=== PATIENT | male | born 1975 | race Caucasian/White ===

== ENCOUNTER 2023-08-22 18:11 | Outpatient (REF) | payer MEDICAID, SELFPAY | END 2023-08-22 18:12 | disposition home or self-care (01) | LOC: HO.HHCLNP 18:11 | PROVIDERS: Visit Provider Nurse Practitioner Family | DX: R30.9 Painful micturition, unspecified (principal) | CPT/HCPCS: 87086 ==

== ENCOUNTER 2023-10-23 10:56 | Outpatient (REF) | payer MEDICAID, SELFPAY | END 2023-10-23 10:57 | disposition home or self-care (01) | LOC: HO.HHCL 10:56 | PROVIDERS: Visit Provider Nurse Practitioner Family | DX: E11.00 Type 2 diabetes mellitus with hyperosmolarity without nonketotic hyperglycemic-hyperosmolar coma (NKHHC) (principal); I10 Essential (primary) hypertension | CPT/HCPCS: 36415; 80053; 80061; 83036 ==

== ENCOUNTER 2023-11-27 15:44 | Outpatient (REF) | payer MEDICAID, SELFPAY ==
--- NOTE | ~2023-11-27 | XR_ITS ---
EXAMINATION: XR SHOULDER, LEFT CLINICAL INFORMATION: The shoulder pain since May 2023, fell, loss of consciousness COMPARISON: None available. TECHNIQUE: AP external rotation, Grashey, scapular Y, and axillary views of the left shoulder. FINDINGS: The bones are intact. No fracture. Glenohumeral and acromioclavicular alignment is anatomic. There is moderate degenerative change of the acromioclavicular joint. There is mild narrowing of the glenohumeral joint. Subchondral cystic spaces are seen within the glenoid. No abnormal soft tissue calcifications. XR/XR shoulder LT min 2V IMPRESSION: 1. No acute bony abnormality. 2. Degenerative changes.
== END 2023-11-27 15:45 | disposition home or self-care (01) ==
LOC: HO.HHCX 15:44
PROVIDERS: Visit Provider Nurse Practitioner Family
DX: M25.512 Pain in left shoulder (principal)
CPT/HCPCS: 73030

== ENCOUNTER 2023-12-21 12:32 | Outpatient (AMB) | payer MEDICAID, SELFPAY ==
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
[2023-12-21 13:14] VITALS: BMI 43.0
== END 2023-12-21 13:45 | disposition home or self-care (01) ==
PROVIDERS: PCP Nurse Practitioner Family; Visit Provider Orthopaedic Surgery
DX: M24.812 Other specific joint derangements of left shoulder, not elsewhere classified (principal)
CPT/HCPCS: 99203

== ENCOUNTER → 2023-12-21 12:32 | Outpatient (BNVA) | payer MEDICAID, SELFPAY | PROVIDERS: Visit Provider Orthopaedic Surgery | DX: M24.812 Other specific joint derangements of left shoulder, not elsewhere classified (principal) | CPT/HCPCS: 99202 ==

== ENCOUNTER 2024-01-11 11:00 | Outpatient (RCR) | payer MEDICAID, SELFPAY ==
--- NOTE | 2023-12-26 15:28 | MHC.PT.EP ---
[facility] [place] Office [place] Office [place] Office [address] Adebayo Hackett [address] [phone] F: [phone] F: [phone] F: [phone] F: [phone] Physical Therapy Plan of Care Date of Evaluation: 12/26/23 Date of Surgery: Diagnosis: internal derangement of LEFT shoulder (MD Dx) LEFT shoulder RTC tear, adhesive capsulitis (PT Dx) (RS) Assessment: Patient is a pleasant 48 y.o. male who is referred to PT by Dr. Homer Torres MD, with Dx of internal derangement of LEFT shoulder.. PT diagnosis is LEFT shoulder RTC tear, adhesive capsulitis. Patient impairments include pain, poor posture, limited ROM, tight capsule, significant weakness. Patient current functional limitations are lift overhead, reaching, washing hair, dressing, carry groceries. Patient will benefit from skilled PT to address aforementioned impairments and functional limitations to meet established goals. Patient is a good candidate for MRI due to presentation. Frequency and Duration: The patient will be seen 2x/week for 4 weeks Short Term Goals: 2 weeks Patient demonstrates consistency and independence with HEP to self manage symptoms. Supervisor Joiners Goals: 4 weeks Patient presents with increased LEFT shoulder flexion AROM 90 degrees to be able to wash hair. Patient presents with increased LEFT shoulder flexion PROM to 130 degrees to improve mobility in capsule to better tolerate ortho visits should surgery be indicated. Treatment Plan: Modalities to reduce pain, spasms and effusion. Manual therapy to restore motion and function. Therapeutic exercise to improve strength and flexibility. Neuromuscular re-education for posture and balance. Therapeutic activities to return to functional activities of daily living. Electronically signed by: David Pickens, PT, DPT Please sign and return to therapist. Thank you for your referral.
== END 2024-03-07 10:46 | disposition home or self-care (01) ==
LOC: HO.PT 11:00
PROVIDERS: PCP Nurse Practitioner Family; Visit Provider Orthopaedic Surgery
DX: M24.812 Other specific joint derangements of left shoulder, not elsewhere classified (principal)
CPT/HCPCS: 97110; 97162

== ENCOUNTER 2024-01-19 10:14 | Outpatient (AMB) | payer MEDICAID, SELFPAY ==
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
[2024-01-19 10:21] VITALS: BMI 43.0
== END 2024-01-19 11:05 | disposition home or self-care (01) ==
PROVIDERS: PCP Nurse Practitioner Family; Visit Provider Orthopaedic Surgery
DX: M75.102 Unspecified rotator cuff tear or rupture of left shoulder, not specified as traumatic (principal)
CPT/HCPCS: 99214

== ENCOUNTER → 2024-01-19 10:14 | Outpatient (BNVA) | payer MEDICAID, SELFPAY | PROVIDERS: PCP Nurse Practitioner Family; Visit Provider Orthopaedic Surgery | DX: M75.102 Unspecified rotator cuff tear or rupture of left shoulder, not specified as traumatic (principal) | CPT/HCPCS: 99212 ==

== ENCOUNTER 2024-02-29 10:11 | Outpatient (AMB) | payer MEDICAID, SELFPAY ==
--- NOTE | 2024-02-29 10:12 | MHC.OFFVIS ---
Vital Signs 02/29/24 10:13 Height 5 ft 10 in Weight 300 lb BMI 43.0 Intake Visit Reasons: Preop LT RTC repair/SCR 03/06/24 NE Intake Note: Tani is a 49 year old male who presents today for a pre operative appointment, he is booked for Left RTC reoair 03/06/[address] Torres. He is asking if the bicep is also being repaired in this surgery. Allergies No Known Allergies [No Known Allergies*] Allergy (Unverified 02/29/24 10:13) Medication List - Last Reconciled 02/29/24 by Alexandru Mckoy PA-C amlodipine 10 mg PO QAM dulaglutide (Trulicity) mg subcut QWEEK losartan-hydrochlorothiazide 100-25 mg 1 tab PO QAM metformin 500 mg PO QAM metoprolol tartrate 25 mg PO BID naloxone 4 mg/actuation intranasal oxycodone-acetaminophen 10-325 mg 1 tab PO Q6H PRN sertraline 50 mg PO QAM HPI Comments Details: Mr Cordero presents to the office today for preop visit. He is scheduled for Left shoulder rotator cuff repair with possible superior capsular repair with Dr. Torres. He continues to have ongoing pain and difficulty with daily activities in the left shoulder, which is affecting his quality of life; therefore, he has elected to move forward with surgery. 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 Review of Systems Const All systems reviewed & are unremarkable except as noted in HPI and below Physical Exam Vital Signs: BMI result Body Mass Index 43.0 Const General: cooperative and no acute distress Orientation/consciousness: patient oriented x3 HEENT Head: Yes normal to inspection, Yes normocephalic and Yes atraumatic Eyes General: appearance normal, both eyes and all related structures Neck Neck: Yes normal visual inspection and Yes no lymphadenopathy Resp Effort & Inspection: normal respiratory effort and able to speak in complete sentences Cardio Rate: regular rate Peripheral pulses: Peripheral pulses 2+ throughout GI Inspection: Yes normal to inspection Palpation (GI): Soft to palpation Skin General skin exam: no rashes or lesions noted Neuro General: patient oriented x3 Extrem Other: Left shoulder skin intact, no open wounds or abraisons. + Drop arm and Hormblower's and lag Psych Appearance: grossly normal Mental Status: mental status grossly normal Results Reviewed Results Reviewed: Assessment & Plan Assessment & Plan (1) Rotator cuff tear, left: Code(s): M75.102 - Unspecified rotator cuff tear or rupture of left shoulder, not specified as traumatic Category: Medical Plan I explained the procedure in detail along with the length of recovery and rehab course. I explained the risk, benefits and alternatives. Risk including, but not limited to infection, blood clots, bleeding, ongoing pain and stiffness. I explained the use of the sling post op ie: 6 weeks. Discussed the importance of PT post op and performing pendulum exercises immediately after surgery. I answered all their questions and with their understanding they have consented to move forward with Left shoulder rotator cuff repair with possible superior capsular reconstruction with Dr Torres. He was fit for a sling in the office today for post op use and his medications were sent to the pharmacy. I did explain to him these are to be used post op only. Patient Instructions: Scribed for Alexandru Mckoy PA-C, by Randy Snyder nuclear medicine medical director, on 02/29/2024 at 10:30 AM EST.? I, Alexandru Mckoy PA-C, have personally reviewed and agree with the information entered by the scribe. Coding Level of Care Code Est Pt Level 3 (40788) Diagnoses Rotator cuff tear, left M75.102
[2024-02-29 10:13] VITALS: BMI 43.0
== END 2024-02-29 11:03 | disposition home or self-care (01) ==
PROVIDERS: PCP Nurse Practitioner Family; Visit Provider Physician Assistant
DX: M75.102 Unspecified rotator cuff tear or rupture of left shoulder, not specified as traumatic (principal)
CPT/HCPCS: 99024

== ENCOUNTER → 2024-02-29 10:11 | Outpatient (BNVA) | payer MEDICAID, SELFPAY | PROVIDERS: PCP Nurse Practitioner Family; Visit Provider Orthopaedic Surgery | DX: M75.102 Unspecified rotator cuff tear or rupture of left shoulder, not specified as traumatic (principal) | CPT/HCPCS: 99212 ==

== ENCOUNTER 2024-03-06 06:41 | Day surgery (SDC) | payer MEDICAID, SELFPAY ==
[2024-03-04 08:03] VITALS: BMI 43.0
--- NOTE | 2024-03-04 15:38 | HO.ANESPROP2 ---
Documented by User: Susan Patel NP 03/04/24 15:39 HPI - Anesthesia Eval Consult details Narrative: 49yo M for Left Arthroscopic Rotator Cuff Repair, possible SCR No PAT booked. 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 Allergies Allergy/AdvReac Type Severity Reaction Status Date / Time No Known Allergies Allergy Unverified 02/29/24 10:13 [No Known Allergies*] Home Medications ?Medication ?Instructions ?Recorded ?Confirmed ?Last Taken ?Type amlodipine 10 mg tablet 10 mg PO QAM 01/19/24 02/29/24 Unknown History dulaglutide 1.5 mg/0.5 mL mg subcut QWEEK 01/19/24 02/29/24 Unknown History subcutaneous pen injector (Trulicity) losartan 100 1 tab PO QAM 01/19/24 02/29/24 Unknown History mg-hydrochlorothiazide 25 mg tablet metformin 500 mg tablet 500 mg PO QAM 01/19/24 02/29/24 Unknown History metoprolol tartrate 25 mg tablet 25 mg PO BID 01/19/24 02/29/24 Unknown History naloxone 4 mg/actuation nasal spray intranasal 01/19/24 02/29/24 Unknown History oxycodone-acetaminophen 10 mg-325 1 tab PO Q6H PRN severe pain 01/19/24 02/29/24 Unknown History mg tablet sertraline 50 mg tablet 50 mg PO QAM 01/19/24 02/29/24 Unknown History Exam Height,Weight and Vital Signs: Height 5 ft 10 in Weight 136.078 kg Assessment and Plan Assessment Anesthesia Assessment: Chart Reviewed Documented by User: Wen Pugh MD 03/06/24 07:32 [facility] Past Medical History Medical History Hypertension Diabetes Family History Family history of problems with anesthesia: No Surgical History Surgical History Hx of appendectomy History of Problems with Anesthesia: No Social History Social History Advance Directives: No Advance Directives Information Provided: Yes Current occupational status: employed 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 Allergies Allergy/AdvReac Type Severity Reaction Status Date / Time No Known Allergies Allergy Unverified 02/29/24 10:13 [No Known Allergies*] Home Medications ?Medication ?Instructions ?Recorded ?Confirmed ?Last Taken ?Type amlodipine 10 mg tablet 10 mg PO QAM 01/19/24 02/29/24 Unknown History dulaglutide 1.5 mg/0.5 mL mg subcut QWEEK 01/19/24 02/29/24 Unknown History subcutaneous pen injector (Trulicity) losartan 100 1 tab PO QAM 01/19/24 02/29/24 Unknown History mg-hydrochlorothiazide 25 mg tablet metformin 500 mg tablet 500 mg PO QAM 01/19/24 02/29/24 Unknown History metoprolol tartrate 25 mg tablet 25 mg PO BID 01/19/24 02/29/24 Unknown History naloxone 4 mg/actuation nasal spray intranasal 01/19/24 02/29/24 Unknown History oxycodone-acetaminophen 10 mg-325 1 tab PO Q6H PRN severe pain 01/19/24 02/29/24 Unknown History mg tablet sertraline 50 mg tablet 50 mg PO QAM 01/19/24 02/29/24 Unknown History Exam Airway Mallampati Class: III TM Dist: <=3cm Neck ROM: Limited Heart: rrr Lungs: cta Assessment and Plan Assessment Anesthesia Assessment: Anesthesia Plan Discussed Final Anesthetic Review Family History of Problems with Anesthesia: No History of Problems with Anesthesia: No NPO: Yes ASA Class: III Final Preanesthetic Review: No Changes in Pt Med Stat, Meds/Allgs Chart Reviewed, Consent Obtained/Reviewed and Anes Risks/Benef Reviewed Patient Risk: Intermediate Procedure Risk: Intermediate Anesthetic Plan Anesthetic Plan: GA and Regional Block Disposition: Standard PACU
[2024-03-06] VITALS (8 sets, daily range): BP systolic 116–151; BP diastolic 68–87; PULSE 62–75; RESP 16–22; TEMP 36.1–36.8; O2SAT 92–97
--- NOTE | 2024-03-06 07:15 | MHC.SHP ---
Pre-Procedural Eval Section A - 24 Hr Update-Section A only Date of Service: 03/06/24 The patient is an INPATIENT: No Changes since office visit: No Cold of Flu in the past 2 weeks, No New Medical Problems, No Changes in Medication and No Patient answered all questions The patient has been examined within 24 hours of the surgical procedure. The History & Physical has been completed within 30 days and I have reviewed it.: Yes Section B - Complete if H&P > 30 days Chief Complaint: Strain of muscle(s) and tendon(s) of the rotator c Allergies: Allergies Allergy/AdvReac Type Severity Reaction Status Date / Time No Known Allergies Allergy Unverified 02/29/24 10:13 [No Known Allergies*] Plan I have reviewed the history and physical and performed a pertinent physical examination on my patient. No changes have occurred unless specified. Time Spent With Patient Time: Total time managing care of this patient today ____ minutes.
--- NOTE | 2024-03-06 07:26 | ECG_ITS ---
Test Reason : pre op Blood Pressure : / mmHG Vent. Rate : 063 BPM Atrial Rate : 063 BPM P-R Int : 124 ms QRS Dur : 086 ms QT Int : 430 ms P-R-T Axes : 040 040 020 degrees QTc Int : 440 ms Sinus rhythm with occasional Premature ventricular complexes Otherwise normal ECG When compared with ECG of 31-MAR-2014 17:00, Premature ventricular complexes are now Present Referred By: Susan Patel Electronically Signed By:ANGELLA JOHNSON MD
[2024-03-06 07:59] LABS: Hematocrit 41.2 % (42.0-52.0); Hemoglobin 13.7 g/dl (14.0-18.0); Mean Corpuscular HGB Conc 33.3 g/dl (31.0-36.0); Mean Corpuscular Hemoglobin 28.3 pg (27.0-33.0); Mean Corpuscular Volume 85.1 fL (80.0-98.0); Mean Platelet Volume 9.9 fL (9.4-12.4); Platelet Count 198 X10*3/uL (160-400); Red Blood Count 4.84 X10*6/uL (4.60-5.80); Red Cell Distribution Width 13.9 % (11.0-16.0); White Blood Count 6.3 X10*3/uL (4.8-10.8)
[2024-03-06] MEDS: Lactated Ringers 1,000 ML 100 ML IVCONT (08:09)
[2024-03-06 08:15] LABS: Glucose, Whole Blood 125 mg/dL (60-115)
[2024-03-06 08:20] LABS: Anion Gap 14 (12-20); Blood Urea Nitrogen 12 mg/dL (9-16); Calcium 9.4 mg/dL (8.4-10.2); Carbon Dioxide 29 mmol/L (22-29); Chloride 104 mmol/L (96-108); Creatinine Clr Calc Pharmacy 185.3; Estimated Glomerular Filt Rate > 60; Glucose Fasting 132 mg/dL (60-99); Potassium 3.7 mmol/L (3.3-5.1); Sodium 143 mmol/L (135-145)
--- NOTE | 2024-03-06 10:16 | PM.OP ---
Brief Operative Note Date of Service: 03/06/24 Pre-op diagnosis: left rotator cuff tear Post-op diagnosis: same Procedure: left rotator cuff repair Implants: Billings and Nephew double loaded Helacoil x 2, Knotless 5.5 x 2, knotless 5.0 x 1, larger Regeneten collagen allograft Surgeon: Homer Torres MD Anesthesia: GETA and regional Was an Assisted Living Housekeeper used for this Procedure?: Yes Assisted Living Housekeeper: Madisyn Finney Estimated blood loss (mL): 20 IV fluids (mL): 1,000 Pathology: none sent Condition: stable Disposition: PACU
--- NOTE | 2024-03-06 10:26 | P.OP_ITS ---
Operative Note Operative Note Date of Service: 03/06/24 Narrative: Date of Service: 03/06/24 Pre-op diagnosis: left rotator cuff tear Post-op diagnosis: same Procedure: left rotator cuff repair Implants: Billings and Nephew double loaded Helacoil x 2, Knotless 5.5 x 2, knotless 5.0 x 1, large Regeneten collagen allograft Surgeon: Homer Torres MD Anesthesia: GETA and regional Was an Tower Erector used for this Procedure?: Yes Tower Erector: Madisyn Finney Estimated blood loss (mL): 20 IV fluids (mL): 1,000 Pathology: none sent Condition: stable Disposition: PACU Procedure in detail: Patient was brought to the operating room and placed the the beach chair position. All bony prominences were well padded and the limb was prepped and draped in standard sterile fashion. A time out was called to identify proper site, proper procedure and proper surgeon. IV antibiotics per weight were administered. I began by making a posterolateral stab incision with a 15 blade. A blunt trochar was placed into the glenohumeral joint and I insufflated the joint with saline and a 30 degree arthroscope was placed. I established an outside- in anterior portal just distal to the biceps tendon. I then began my inspection of the glenohumeral joint. There was a large degenerative SLAP tear at the biceps anchor with the biceps displaced superiorly and 90 % torn. There were moderate cartilage changes of the glenoid witho minimal humeral head changes. There was a full thickness undersurface RTC tear with retraction. The subscapularis was intact. I completed the biceps tenotomy and circumeferentially debrided the labrum and loose glenoid articular cartilage. I then removed the trochar and entered the subacromial space. A direct lateral portal was then established and I performed a bursectomy. The cuff was then examined. There was a full thickness tear of the supra and infraspinatus with re traction. The most anterior suprapinatus insertion was intact and so the tear was more mobile than I would have expected. I esptablished two lateral portals and placed two medial row anchors into the area just adjacent to the articualr cartialge of the humeral head. I then brought the suture limbs ( 8) through the medial cuff using a suture passer. I then debrided the bare area down to bleeding bone and, using a cross bridge configuration, brought 4 limbs to each of two lateral 5.5 anchors. This required a release posteriorly and I addedx two additional posterior looped suture to \the most posterior fibers of the infraspinatus. These were brought anteriorly to a third knotless anchor. This re-approximated the cuff anatomy better than expected. This wass a large chronic tear and. while there was minimal tension on the repair, I felt that augmentation with a graft was indicated. A large Regeenten graft was placed through the alteral portal over the repair site This was adhered to the cuff with PEEK trinity and PEEK bone anchors (x 2) laterally. I then performed a 5mm subacromial decompression anteriorly. I was satisfied with the repair and the final images were captured and I removed all instrumentation. Portals were closed with nylon. Patient was placed in an abduction sling, extubated and brought to the recovery room in stable condition. There were no known complications. LARGE REPAIR PROTOCOL
== END 2024-03-06 12:37 | disposition home or self-care (01) ==
LOC: HO.SSS 06:41
PROVIDERS: Nurse Practitioner; PCP Nurse Practitioner Family; Visit Provider Orthopaedic Surgery
PROC: (CPT 29827; principal; 2024-03-06 08:30)
DX: M75.102 Unspecified rotator cuff tear or rupture of left shoulder, not specified as traumatic (principal); M24.812 Other specific joint derangements of left shoulder, not elsewhere classified; E11.9 Type 2 diabetes mellitus without complications; I10 Essential (primary) hypertension; Z79.84 Long term (current) use of oral hypoglycemic drugs; Z79.899 Other long term (current) drug therapy; Z79.85 Long-term (current) use of injectable non-insulin antidiabetic drugs
CPT/HCPCS: 29827; 29828; 36415; 80048; 82947; 85027; 93005; C1713; C1763; J0131; J0171; J0665; J0690; J1100; J1920; J2250; J2405; J2704; J3010

== ENCOUNTER → 2024-03-06 06:41 | Outpatient (BNV) | payer MEDICAID, SELFPAY | PROVIDERS: PCP Nurse Practitioner Family; Visit Provider Orthopaedic Surgery | DX: S43.432A Superior glenoid labrum lesion of left shoulder, initial encounter (principal) | CPT/HCPCS: 29827 ==

== ENCOUNTER → 2024-03-06 07:26 | Outpatient (BNV) | payer MEDICAID, SELFPAY | PROVIDERS: PCP Nurse Practitioner Family; Visit Provider Internal Medicine Cardiovascular Disease | DX: I49.3 Ventricular premature depolarization (principal) | CPT/HCPCS: 93010 ==

== ENCOUNTER 2024-03-13 09:31 | Outpatient (AMB) | payer MEDICAID, SELFPAY ==
--- NOTE | 2024-03-13 10:11 | MHC.OFFVIS ---
Intake Visit Reasons: PO LT RTC repair/SCR 03/06/24 NE Intake Note: Tani is a 49 year old male who presents today for a post operative left RTC repair, DOS 03/06/24 NE. Patient reports that he is doing well, states his pain becomes worse at night making it difficult to sleep. Allergies No Known Allergies [No Known Allergies*] Allergy (Unverified 03/13/24 11:58) Medication List - Last Reconciled 03/18/24 by Alexandru Mckoy PA-C acetaminophen 650 mg (2 x 325 mg) PO Q4-6H PRN 30 days amlodipine 10 mg PO QAM dulaglutide (Trulicity) mg subcut QWEEK ibuprofen 800 mg PO Q8H PRN 30 days losartan-hydrochlorothiazide 100-25 mg 1 tab PO QAM metformin 500 mg PO QAM metoprolol tartrate 25 mg PO BID naloxone 4 mg/actuation intranasal oxycodone-acetaminophen 10-325 mg 1 tab PO Q6H PRN sertraline 50 mg PO QAM tramadol 50 mg PO BEDTIME 7 days HPI HPI PO LT RTC repair/SCR 03/06/24 NE: Details: 49-year-old male who returns to the office today for post-op left RTC repair, 03/06/[address] Torres. He continues to have pain in his shoulder that aggravated at night makes him unable to sleep. He finds no relief with the pain medication prescribed to him. He has no other concerns. 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 No erythema or drainage. NVI. Assessment & Plan Assessment & Plan (1) Rotator cuff tear, left: Code(s): M75.102 - Unspecified rotator cuff tear or rupture of left shoulder, not specified as traumatic Category: Medical Plan Stitches were removed today, steri strips applied. He will begin a course of physical therapy to work on ROM and periscapular stabilization, no RTC strengthening at this time. He will continue wearing his sling at all times except working on therapy exercises and hygiene. He was also given a 1-time prescription of tramadol to take at night. I would like to see him back in [address] Torres, sooner if needed. Orders: Orders PT Evaluation and Treatment 03/12/24 M75.102 - Unspecified rotator cuff tear or rupture of left shoulder, not specified as traumatic Medications: New tramadol 50 mg PO BEDTIME 7 tabs 0RF 7 days Discontinued oxycodone-acetaminophen 5-325 mg (Percocet) Partial Fill upon patient request. Discontinued Reason: Doctor's Order 1 tab PO Q4-6H PRN 42 tabs 0RF pain (scale score 4-6) 7 days Patient Instructions: Scribed for Alexandru Mckoy PA-C, by Randy Snyder medical resident, on 03/13/2024 at 9:45 AM EST.? I, Alexandru Mckoy PA-C, have personally reviewed and agree with the information entered by the scribe. Coding Level of Care Code Global (79504) Diagnoses Rotator cuff tear, left M75.102
== END 2024-03-13 10:49 | disposition home or self-care (01) ==
PROVIDERS: PCP Nurse Practitioner Family; Visit Provider Physician Assistant
DX: M75.102 Unspecified rotator cuff tear or rupture of left shoulder, not specified as traumatic (principal)
CPT/HCPCS: 99024

== ENCOUNTER → 2024-03-13 09:31 | Outpatient (BNVA) | payer MEDICAID, SELFPAY | PROVIDERS: PCP Nurse Practitioner Family; Visit Provider Physician Assistant | DX: Z47.89 Encounter for other orthopedic aftercare (principal) | CPT/HCPCS: 99212 ==

== ENCOUNTER 2024-04-11 10:36 | Outpatient (AMB) | payer MEDICAID, SELFPAY ==
--- NOTE | 2024-04-11 10:39 | A.OFFVIS_ITS ---
Vital Signs 04/11/24 10:40 Height 5 ft 10 in Weight 300 lb BMI 43.0 Handedness Right Intake Visit Reasons: Post Op - Lt RTC repair 03/06/24 Intake Note: Tani is a 49 year old right hand dominant male who presents today for a post operative follow up of his Left Shoulder 5 weeks s/p Left RTC Repair 03/06/24. Patient reports he is feeling better. He is going to PT which is going well. He has been getting tightening sensation in his bicep since his surgery and would like to know if this is normal. Allergies No Known Allergies [No Known Allergies*] Allergy (Verified 04/11/24 10:40) HPI HPI Post Op - Lt RTC repair 03/06/24: Details: Tani is a 49 year old right hand dominant male who presents today for a post operative follow up of his Left Shoulder 5 weeks s/p Left RTC Repair 03/06/24. Patient reports he is feeling better. He is going to PT which is going well. He has been getting tightening sensation in his bicep since his surgery and would like to know if this is normal. 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
[2024-04-11 10:40] VITALS: BMI 43.0
== END 2024-04-11 10:53 | disposition home or self-care (01) ==
LOC: HO.HOS 10:36
PROVIDERS: PCP Nurse Practitioner Family; Visit Provider Orthopaedic Surgery
DX: M75.102 Unspecified rotator cuff tear or rupture of left shoulder, not specified as traumatic (principal)
CPT/HCPCS: 99024

== ENCOUNTER → 2024-04-11 10:36 | Outpatient (BNVA) | payer MEDICAID, SELFPAY | PROVIDERS: PCP Nurse Practitioner Family; Visit Provider Orthopaedic Surgery | DX: Z47.89 Encounter for other orthopedic aftercare (principal); Z98.890 Other specified postprocedural states | CPT/HCPCS: 99212 ==

== ENCOUNTER 2024-04-19 11:00 | Outpatient (RCR) | payer MEDICAID, SELFPAY ==
--- NOTE | 2024-04-05 13:57 | MHC.PT.EP ---
[facility] [place] Office [place] Office [place] Office [address] Adebayo Hackett [address] [phone] F: [phone] F: [phone] F: [phone] F: [phone] Physical Therapy Plan of Care Date of Evaluation: 04/05/24 Date of Surgery: 03/06/24 Diagnosis: Per script: left shoulder rotator cuff repair with possible superior capsular reconstruction 03/06/24 L supra and infraspinatus retracted repair w/ Regenten patch, biceps tenotomy, SAD on 03/06/24 Assessment: pt is a 49 y/o male presenting to physical therapy w/ referring diagnosis of left shoulder rotator cuff repair with possible superior capsular reconstruction 03/06/24. He underwent L supra and infraspinatus retracted repair w/ Regenten patch, biceps tenotomy, SAD on 03/06/24. He arrived today w/o his sling and stated he does not wear it to bed. pt edu on importance of sling for 2 more weeks until he hits 6 wk gwendolyn. pt verbalized understanding but stated he will not wear it to bed. Impairments include pain, decreased range of motion, decreased strength, impaired functional mobility, impaired postural awareness, and altered ambulation mechanics. pt is a good candidate for skilled PT due to age, potential remediation of impairments, typical disease/condition progression and prognosis, comorbidities, and motivation. pt would benefit from skilled PT intervention to provide a tailored strengthening and stretching exercise program, functional training, gait training, postural re-training, neuromuscular re-education, modalities as needed for pain, equipment safety demonstration. Frequency and Duration: The patient will be seen 2x/wk for 8 wks Short Term Goals: pt will be I w/ HEP to promote self-management of condition. pt will improve L shoulder AAROM to at least 90* to progress per protocol. pt will be compliant w/ sling for 2 more week to promote optimal post-op healing. [facility] Goals: pt will report a statistically significant improvement in self-reported outcome measure, SPADI, to promote return to PLOF. pt will improve L shoulder strength to at least 4+/5 in all planes to promote return to monotype setter. pt will improve L shoulder functional ER to at least subocciput to promote ease in upper body ADLs. Treatment Plan: Modalities to reduce pain, spasms and effusion. Manual therapy to restore motion and function. Therapeutic exercise to improve strength and flexibility. Neuromuscular re-education for posture and balance. Therapeutic activities to return to functional activities of daily living. Electronically signed by: Ginny Santo PT, DPT Please sign and return to therapist. Thank you for your referral.
--- NOTE | 2024-05-03 15:29 | MHC.PT.DC ---
[facility] [place] Office [place] Office [place] Office [address] Adebayo Hackett [address] [phone] F: [phone] F: [phone] F: [phone] F: [phone] Physical Therapy Discharge Report Diagnosis: Per script: left shoulder rotator cuff repair with possible superior capsular reconstruction 03/06/24 L supra and infraspinatus retracted repair w/ Regenten patch, biceps tenotomy, SAD on 03/06/24 Date of Surgery: 03/06/24 Date of Evaluation: 04/05/24 Date of Discharge: 05/03/24 Treatments to Date: 3 Cancellations to Date: 1 No Shows to Date: 5 Discharge Status: Recommend MD Follow-up Visit Non-compliance Discharge Summary: The patient overall has had poor compliance with management of this post-operative status. He self-discharged his sling at approximately 4 weeks. He was not wearing it at night due to having nightmares about being tied up which caused him to fall out of bed multiple times. I strongly encouraged him to comply with sling precautions. He only attended three total visits. At his last appointment he appeared visibly ill. He was progressed to the level he was expected to be per the protocol; however, his current status is unknown. He has now no showed 5 visits and is being discharged for non-compliance. Electronically signed by: Ginny Santo PT, DPT Please sign and return to therapist. Thank you for your referral.
== END 2024-05-03 15:31 | disposition home or self-care (01) ==
LOC: HO.PT 11:00
PROVIDERS: PCP Nurse Practitioner Family; Visit Provider Physician Assistant
DX: M75.102 Unspecified rotator cuff tear or rupture of left shoulder, not specified as traumatic (principal)
CPT/HCPCS: 97110; 97140; 97162

== ENCOUNTER 2024-09-02 10:17 | Outpatient (REF) | payer MEDICAID, SELFPAY ==
[2024-09-02 11:42] LABS: MANUAL DIFF FLAG NO
[2024-09-02 12:01] LABS: Basophils Percent Auto 0.4 % (0-2); Eosinophils Absolute Auto 0.2 X10*3/uL (0.0-0.4); Eosinophils Percent Auto 2.3 % (0-4); Hematocrit 45.3 % (42.0-52.0); Imm Gran Abs Auto 0.04 X10*3/uL (0.00-0.03); Imm Gran Pct Auto 0.5 % (0.0-0.4); Lymphocytes Absolute Auto 1.4 X10*3/uL (1.2-4.9); Lymphocytes Percent Auto 17.4 % (20-40); Mean Corpuscular HGB Conc 33.1 g/dl (31.0-36.0); Mean Corpuscular Hemoglobin 29.2 pg (27.0-33.0); Mean Corpuscular Volume 88.1 fL (80.0-98.0); Mean Platelet Volume 10.3 fL (9.4-12.4); Monocytes Absolute Auto 0.7 X10*3/uL (0.1-1.2); Monocytes Percent Auto 8.1 % (2-11); Neutrophils Absolute Auto 5.8 x10*3/uL (2.0-8.3); Neutrophils Percent Auto 71.3 % (45-73); Platelet Count 240 X10*3/uL (160-400); Red Blood Count 5.14 X10*6/uL (4.60-5.80); Red Cell Distribution Width 14.2 % (11.0-16.0); White Blood Count 8.1 X10*3/uL (4.8-10.8)
[2024-09-02 12:34] LABS: Alanine Aminotransferase 27 U/L (0-40); Albumin Level 4.4 g/dL (3.5-5.0); Alkaline Phosphatase 72 U/L (39-117); Anion Gap 13 (12-20); Aspartate Amino Transferase 30 U/L (5-37); Bilirubin Total 0.9 mg/dL (0.0-1.0); Blood Urea Nitrogen 8 mg/dL (9-16); C Reactive Protein 6.95 mg/dL (< or = 0.50); Calcium 9.8 mg/dL (8.4-10.2); Carbon Dioxide 30 mmol/L (22-29); Chloride 101 mmol/L (96-108); Estimated Glomerular Filt Rate > 60; Glucose Random 149 mg/dL (60-115); Potassium 3.2 mmol/L (3.3-5.1); Sodium 141 mmol/L (135-145); TSH reflex Free T4 1.05 uIU/mL (0.32-4.0); Total Protein 8.3 g/dL (6.5-8.0)
[2024-09-02 12:41] LABS: ~HepC Num1 0.53 S/CO (0.00-0.79); ~Hepatitis B Surface Antibody NONREACTIVE (Nonreactive); ~Hepatitis C Antibody Nonreactive (Nonreactive)
[2024-09-02 12:44] LABS: Erythrocyte Sedimentation Rate 20 MM/HR (0-15)
[2024-09-02 12:57] LABS: Folate 14.2 ng/mL (> or = 4.0); Vitamin B12 806 pg/mL (200-900)
[2024-09-04 02:39] LABS: RPR Rapid Plasma Reagin NON-REACTIVE (NON-REACTIVE)
[2024-09-05 11:43] LABS: HIV RNA PCR Qn Copies Not Detected Copies/mL; HIV RNA PCR Qn Log Copies Not Detected Log cps/mL
== END 2024-09-02 10:18 | disposition home or self-care (01) ==
LOC: HO.HHCL 10:17
PROVIDERS: Nurse Practitioner Family; Visit Provider Nurse Practitioner Family
DX: Z00.00 Encounter for general adult medical examination without abnormal findings (principal); R19.7 Diarrhea, unspecified; E11.9 Type 2 diabetes mellitus without complications; Z11.3 Encounter for screening for infections with a predominantly sexual mode of transmission; R41.3 Other amnesia
CPT/HCPCS: 36415; 80053; 82607; 82746; 84443; 85025; 85652; 86140; 86592; 86706; 86803; 87536; 87900

== ENCOUNTER 2025-03-20 09:38 | Outpatient (REF) | payer OTHER, SELFPAY ==
--- OUTSIDE RECORDS SUMMARY | 2025-03-20 10:45 | XMS_ITS | Encounter Summary ---
Author Organization [employer] Address [address] [place] [address] [address] [address] Care Team Providers Care Rerecording Mixer Name Role Phone Mary Reich NP Primary Care Provider [phone] Reason for Referral * Imaging (Routine) - Authorized Specialty Diagnoses / Procedures Referred By Nehal pedro Referred To Contact Cardiology Diagnoses Primary hypertension Procedures Transthoracic Echo (TTE) Complete Mary Reich NP [address] [place] [address] Phone: tel: fax: [address] Phone: tel: fax: Referral ID Status Reason Start Date Expiration Date Visits Requested Visits Authorized [id number] Authorized Perform Procedure 03/17/2025 03/17/2026 1 1 * Medications - Closed Specialty Diagnoses / Procedures Referred By Nehal t Referred To Contact Diagnoses Type 2 diabetes mellitus with other specified complication, unspecified whether middle or intermediate school principal insulin use ([facility]) Mary Reich NP [address] [place] [address] Phone: tel: fax: Referral ID Status Reason Start Date Expiration Date Visits Re quested Visits Authorized [id number] Closed 1 1 * Consultation (Routine) - Authorized Specialty Diagnoses / Procedures Referred By Nehal t Referred To Contact Behavioral Health Diagnoses Current mild episode of major depressive disorder without prior episode (CMS/HCC) Mary Reich NP [address] [place] [address] Phone: tel: fax: Referral ID Status Reason Start Date Expiration Date Visits Requested Visits Authorized [id number] Authorized Specialty Services Required 03/17/2025 03/17/2026 1 1 * Consultation (Routine) - Authorized Specialty Diagnoses / Procedures Referred By Contac t Referred To Contact Cardiology Diagnoses Primary hypertension Mary Reich NP [address] [place] [address] Phone: tel: fax: [address] Phone: tel: fax: Referral ID Status Reason Start Date Expiration Date Visits Requested Visits Authorized [id number] Authorized Specialty Services Required 03/17/2025 03/17/2026 1 1 Encounter Details Date Type Department Care Team (Late st Contact Info) Description 03/17/2025 9:30 AM EDT Office Visit [facility] [address] [place] [address] Mary Reich NP [address] [place] [address] Type 2 diabetes mellitus with other specified complication, unspecified whether jail insulin use ([facility]) (Primary Dx); Chronic pain syndrome; Primary hypertension; Dietary counseling; Exercise counseling; Long-term current use of opiate analgesic; Chronic midline low back pain with sciatica, sciatica laterality unspecified; Current mild episode of major depressive disorder without prior episode ([facility]); Morbid obesity ([facility]) Social History Tobacco Use Types Packs/Day Years Used Date Smoking Tobacco: Former Cigarettes 2 15 Passive Smoke Exposure: Past Smokeless Tobacco: Never Tobacco Cessation:Counseling Given: Not Answered Comments:Quit smoking 16 years ago Alcohol Use Standard Drinks/Week Comments Not Currently 0 (1 standard drink = 0.6 oz pur e alcohol) Depression Answer Date Recorded Patient Health Questionnaire-9 Score 15 03/17/2025 Patient Health Questionnaire-9 Score 15 03/17/2025 Last PHQ-9: Questionnaire Data Not on file 0 03/17/2025 Housing Stability Answer Date Recorded What is your housing situation today? I have lilo ponce 03/17/[address] you li ve. Do you have problems with any of the following? None of the above 03/17/2025 Food Insecurity Answer Date Recorded Within the past 12 months, y ou worried that your food would run out before you got money to buy more: Often true 03/17/2025 Within the past 12 months,th e food you bought just didn't last and you didn't have enough money to get more: Often true 11/2024 Transportation Answer Date Recorded In the past 12 months, has l ack of transportation kept you from medical appts, meetings, work or from getting things needed for daily living? No 03/17/2025 Utilities Answer Date Recorded In the past 12 months, has t he electric, gas, oil or water company threatened to shut off services in your home? No 03/17/2025 Depression Answer Date Recorded Patient Health Questionnaire-2 Score 4 03/17/2025 Internet Access Answer Date Recorded Internet Access Q1 Yes 03/17/2025 Internet Access Q2 Not on file 03/17/2025 Sex and Gender Information Value Date Recorded Sex Assigned at Male 08/22/2023 9:51 AM EST Legal Sex Male 11:23 AM EDT Gender Identity Male 08/22/2023 9:51 AM EST Sexual Orientation Straight 08/22/2023 9: 51 AM EST documented as of this encounter Last Filed Vital Signs Vital Sign Reading Time Taken Comments Blood Pressure 162/110 03/17/2025 10:20 AM EDT Pulse 72 03/17/2025 9:41 AM EDT Temperature 36.1 ??C (96.9 ??F) 03/17/2025 9:41 AM ED T Respiratory Rate 16 03/17/2025 9:41 AM EDT Oxygen Saturation - - Inhaled Oxygen Concentration - - Weight 145 kg (319 lb 2 oz) 03/17/2025 9:41 AM E DT Height 177.8 cm (5' 10 ) 03/17/2025 9:41 AM EDT Body Mass Index 45.79 03/17/2025 9:41 AM EDT documented in this encounter Functional Status * Over the past 2 weeks, how often have you been bothered by any of the following problems? Question Answer Date of Assessment Author Patient Health Questionnaire-2 Score 4 03/17/2025 10:20 AM EDT Jeaneth Bustamante MA * Little interest or pleasure in doing things Answer Date of Assessment Author More than half the days 03/17/2025 10:20 AM EDT Jeaneth Frederick MA * Feeling down, depressed, or hopeless Answer Date of Assessment Author More than half the days 03/17/2025 10:20 AM Jeaneth Brambila MA * Trouble falling or staying asleep, or sleeping too much Answer Date of Assessment Author Nearly every day 03/17/2025 10:20 AM Jeaneth Santa MA * Feeling tired or having little energy Answer Date of Assessment Author Nearly every day 03/17/2025 10:20 AM EDJeaneth Tobar MA * Poor appetite or overeating Answer Date of Assessment Author Several days 03/17/2025 10:20 AM Jeaneth Marie Ma, [place] * Feeling bad about yourself - or that you are a failure or have let yourself or your family down Answer Date of Assessment Author Nearly every day 03/17/2025 10:20 AM Jeaneth Santa MA * Trouble concentrating on things, such as reading the newspaper or watching television Answer Date of Assessment Author Several days 03/17/2025 10:20 AM Jeaneth Marie Ma, [place] * Moving or speaking so slowly that other people could have noticed? Or the opposite - being so fidgety or restless that you have been moving around a lot more than usual. Answer Date of Assessment Author Not at all 03/17/2025 10:20 AM Jeaneth Marie Ma, [place] * Thoughts that you would be better off or hurting yourself in some way Answer Date of Assessment Author Not at all 03/17/2025 10:20 AM EDT Jeaneth Chapman Ma, [place] * Patient Health Questionnaire-9 Score Answer Date of Assessment Author 15 03/17/2025 10:20 AM EDT Jeaneth Chapman Ma, [place] * How difficult have these problems made it for you to do your work, take care of things at home, or get along with other people? Answer Date of Assessment Author Somewhat difficult 03/17/2025 10:20 AM EDT Jeaneth Frederick MA * Over the last 2 weeks, how often have you been bothered by any of the following problems? Question Answer Date of Assessment Author Feeling nervous, anxious, or on edge 2 03/17/2025 10:20 AM EDT Jeaneth Frederick MA Not being able to stop or control worrying 2 03/17/2025 10:20 AM EDT Jeaneth Frederick MA Worrying too much about different things 2 03/17/2025 10:20 AM EDT Jeaneth Frederick MA Trouble relaxing 3 03/17/2025 10:20 AM EDT Jeaneth Frederick MA Being so restless that it is hard to sit still 1 03/17/2025 10:20 AM TONGT Jeaneth Frederick MA Becoming easily annoyed or irritable 1 03/17/2025 10:20 AM EDT Jeaneth Frederick MA Feeling afraid as if something awful might happen 1 03/17/2025 10:20 AM EDT Jeaneth Sands MA VENESSA-7 Total Score 12 03/17/2025 10:20 AM EDT Jeaneth Frederick MA documented as of this encounter Progress Notes * Mary Reich NP - 03/17/2025 9:30 AM EDT Subjective: Tani Cordero is a 50 y.o. male with hypertension/ type II DIABETES MELLITUS and chronic pain NCNS to chronic pain group Did not take bp meds this morning Denies CP or pressure Reports at home bp can go up to 200 Pt reports pain medication, sports injury , oxycodone or percocet before it was higher dose, and with oxycontin bid, and augusto and the dr lowered it, 2010 to here, more pain in shouldersare painful, has had surgery on left arm which is worse 1 year ago surgery, Rotator cuff and bicep repair [facility] Stabbing and no strength Headaches with both gabapentin and lyrica bad headache New concerns: pt reports he called regarding pain group, [place] was [place] for . Frustrated with calling, phone have not been recorded correctly Htn- abotu the same at home but no chest pain Has not had trulicity for 3-6 motnhs Was working wt was down to 286 lbs Pt diabetic - and not controlled with metformin and with cardiovascular comorbidity Pain is not adequately controlled, shoulder pain severe Anxiety- endorses panic attacks, sertraline not helpful and pt ran out sometime ago Hypertension ROS: taking medications as instructed, no medication side effects noted, no TIA's, no chest pain on exertion, and no dyspnea on exertion. BP Readings from Last 3 Encounters: 03/17/25 (!) 162/110 09/02/24 (!) 164/110 02/09/24 (!) 157/100 No results found for: MICHAEL GARY Problem List[1] Tobacco Use History[2] Objective: BP (!) 162/110 (BP Location: Right arm, Patient Position: Sitting, BP Cuff Size: Large adult) Comment (BP Location): four arm Pulse 72 Temp 96.9 ??F (36.1 ??C) (Oral) Resp 16 Ht 5' 10 (1.778m) Wt 319 lb 2 oz (145 kg) BMI 45.79 kg/m?? Appearance alert, well appearing, and in no distress and overweight. General exam BP noted to be severely elevated today in office, S1, S2 normal, no gallop, no murmur,chest clear, no JVD, no HSM, no edema. Lab review: orders written for new lab studies as appropriate; see orders. The 10-year ASCVD risk score (Neo CHAU, et al., 2019) is: 9.6% Values used to calculate the score: Age: 50 years Sex: Male Is Non- : No Diabetic: Yes Tobacco smoker: No Systolic Blood Pressure: 162 mmHg Is BP treated: Yes HDL Cholesterol: 48 mg/dL Total Cholesterol: 170 mg/dL Current Medications[3] Problem List Items Addressed This Visit Chronic midline back pain Hypertension Current Assessment & Plan Above goal, on losartan, hydrochlorothiazide, amlodipine and betablocker Referral to cardiology EKG wnl No chest pain or pressure Echo ordered As well as trulicity for sugar management and BMI reduction Relevant Orders ECG 12 lead (Completed) Referral to Cardiology Transthoracic Echo (TTE) Complete Dietary counseling Current Assessment & Plan Dietary Recommendations: Fruits, vegetables, whole grains, protein foods, and fat-free or low-fat dairy products are healthychoices. Eat different types of protein foods in your diet. This can include seafood, lean meats, poultry, beans, peas, lentils, nuts, seeds, soy products, and eggs. Limit foods and beverages higher in added sugars, saturated fat, and sodium. Exercise Recommendations: At least 150 minutes of moderate-intensity physical activity per week, or an equivalent combinationof moderate- and vigorous-intensity activity Relevant Medications Dulaglutide (Trulicity) 0.75 MG/0.5ML solution auto-injector Exercise counseling Relevant Medications Dulaglutide (Trulicity) 0.75 MG/0.5ML solution auto-injector Long-term current use of opiate analgesic Overview Medication: Percocet 10/325mg Q6H PRN Indication: chronic midline back pain, left shoulder pain Last UI [employer]EL[employer] Agreement: 11/26/24 Current Assessment & Plan Pt reports has called and plans to estblish EMR usage for future communications related to pain group. Pain not managed , but pt does not want to increase opiate therapy Gabapentin caused headaches, add cymbalta for panic and pain Relevant Medications DULoxetine (Cymbalta) [address] capsule Type 2 diabetes mellitus with other specified complication (CMS/HCC) - Primary Relevant Medications Dulaglutide (Trulicity) 0.75 MG/0.5ML solution auto-injector Other Relevant Orders POCT Glucose (Completed) POCT HGB A1C (Completed) Lipid Panel, Standard Comprehensive Metabolic Panel Microalbumin, Random Urine w/Creatinine Hemoglobin A1c Chronic pain syndrome Relevant Medications DULoxetine (Cymbalta) [address] capsule Morbid obesity (CMS/HCC) Current Assessment & Plan Will restart trulicity Lab Results Component Value Date HGBA1C 7.6 (A) 03/17/2025 Relevant Medications Dulaglutide (Trulicity) 0.75 MG/0.5ML solution auto-injector Current mild episode of major depressive disorder without prior episode (CMS/HCC) Current Assessment & Plan Increased panic, self stopped sertraline, trial cymbalta Referral to Relevant Medications DULoxetine (Cymbalta) [address] capsule Other Relevant Orders Referral to Behavioral Health Assessment: Hypertension poorly controlled, patient poorly compliant, and needs to follow diet more regularly. Plan: Lab results and schedule of future lab studies reviewed with patient. Orders and follow up as documented in patient record. Reviewed diet, exercise and weight control. Recommended sodium restriction. Reviewed medications and side effects in detail.. [1] Patient Active Problem List Diagnosis VENESSA (generalized anxiety disorder) Chronic midline back pain Other insomnia Controlled type 2 diabetes mellitus without complication, without long-term current use of insulin (CMS/HCC) Hypertension Routine health maintenance Screening for colon cancer Dietary counseling Exercise counseling Diarrhea Snoring Memory loss Long-term current use of opiate analgesic Type 2 diabetes mellitus with other specified complication (CMS/HCC) Chronic pain syndrome Morbid obesity (CMS/HCC) Current mild episode of major depressive disorder without prior episode (CMS/HCC) [2] Social History Tobacco Use Smoking Status Former Current packs/day: 2.00 Average packs/day: 2.0 packs/day for 15.0 years (30.0 ttl pk-yrs) Types: Cigarettes Passive exposure: Past Smokeless Tobacco Never Tobacco Comments Quit smoking 16 years ago [3] Current Outpatient Medications Medication Sig Dispense Refill acetaminophen (Tylenol) 325 MG tablet TAKE 2 TABLETS BY MOUTH EVERY 4 TO 6 HOURS NEEDED FOR PAINOR FEVER amLODIPine (Norvasc) 10 MG tablet TAKE 1 TABLET BY MOUTH EVERY DAY IN THE MORNING 90 tablet 3 Blood Glucose Monitoring Suppl ([employer] [place] Lite) w/Device kit Use to test blood sugar bid dxdm 1 kit 0 Blood Pressure kit 1 kit if needed each day (high blood pressure). 1 kit 1 cyclobenzaprine (Flexeril) 10 MG tablet TAKE 1 TABLET BY MOUTH THREE TIMES DAILY FOR 10 DAYS 30 tablet 0 Dulaglutide (Trulicity) 0.75 MG/0.5ML solution auto-injector Inject 0.5 mL under the skin 1 (one) time per week for 28 days. 2 mL 0 Dulaglutide (Trulicity) 0.75 MG/0.5ML solution auto-injector Inject 0.75 mg under the skin 1 (one) time per week. 2 mL 0 DULoxetine (Cymbalta) [address] capsule Take 1 capsule (20 mg) by mouth Once per day for 5 days, THEN 1 capsule (20 mg) 2 times daily for 25 days. Do not crush or chew. 55 capsule 1 glucose blood test strip Use 3 times dialy before meals 100 each 12 ibuprofen 800 MG tablet Take 1 tablet (800 mg) by mouth every 8 (eight) hours if needed for mild pain. 90 tablet 3 losartan-hydroCHLOROthiazide (Hyzaar) 100-25 MG tablet TAKE 1 TABLET BY MOUTH EVERY DAY IN THE MORNING 90 tablet 3 metFORMIN (Glucophage) 500 MG tablet TAKE 1 TABLET BY MOUTH EVERY DAY WITH BREAKFAST 90 tablet 3 metoprolol tartrate (Lopressor) 25 MG tablet TAKE 1 TABLET BY MOUTH TWICE DAILY 180 tablet 1 Multiple Vitamin (multivitamin) tablet Take 1 tablet by mouth Once per day. Purchases OTC oxyCODONE-acetaminophen (Percocet) 10-325 MG tablet Take 1 tablet by mouth every 6 (six) hours if needed for severe pain for up to 28 days. 112 tablet 0 TRUEplus Lancets 33G misc 1 Application 3 times daily. TEST BLOOD SUGAR THREE TIMES DAILY No current facility-administered medications for this visit. documented in this encounter Miscellaneous Notes * Assessment & Plan Note - Mary Reich NP - 03/17/2025 12:48 PM EDTAssociated Problem(s): Morbid obesity (CMS/HCC) Will restart trulicity Lab Results Component Value Date HGBA1C 7.6 (A) 03/17/2025 * Assessment & Plan Note - Mary Reich NP - 03/17/2025 12:48 PM EDTAssociated Problem(s): Current mild episode of major depressive disorder without prior episode (CMS/HCC) Increased panic, self stopped sertraline, trial cymbalta Referral to * Assessment & Plan Note - Mary Reich NP - 03/17/2025 12:47 PM EDTAssociated Problem(s): Long-term current use of opiate analgesic Pt reports has called and plans to estblish EMR usage for future communications related to pain group. Pain not managed , but pt does not want to increase opiate therapy Gabapentin caused headaches, add cymbalta for panic and pain * Assessment & Plan Note - Mary Reich NP - 03/17/2025 12:45 PM EDTAssociated Problem(s): Dietary counseling Dietary Recommendations: Fruits, vegetables, whole grains, protein foods, and fat-free or low-fat dairy products are healthychoices. Eat different types of protein foods in your diet. This can include seafood, lean meats, poultry, beans, peas, lentils, nuts, seeds, soy products, and eggs. Limit foods and beverages higher in added sugars, saturated fat, and sodium. Exercise Recommendations: At least 150 minutes of moderate-intensity physical activity per week, or an equivalent combinationof moderate- and vigorous-intensity activity * Assessment & Plan Note - Mary Reich NP - 03/17/2025 12:45 PM EDTAssociated Problem(s): Hypertension Above goal, on losartan, hydrochlorothiazide, amlodipine and betablocker Referral to cardiology EKG wnl No chest pain or pressure Echo ordered As well as trulicity for sugar management and BMI reduction documented in this encounter Plan of Treatment Upcoming Encounters Date Type Department Care Team (Late st Contact Info) Description 03/24/2025 2:00 PM EDT Clinical Support [address] [address] 03/25/2025 9:45 AM EDT Office Visit [facility] [address] [place] [address] 05/12/2025 9:30 AM EDT Office Visit [facility] [address] [facility] [place] [address] Mary Reich NP [address] [place] [address] Scheduled Orders Name Type Priority Associated Diagnoses Orde r Schedule Lipid Panel, Standard Lab Routine Type 2 diabetes mellitus with other specified complication, unspecified whether middle or intermediate school principal insulin use (CMS/HCC) Expected: 03/17/2025 (Approximate), Expires: 03/17/2026 Comprehensive Metabolic Panel Lab Routine Type 2 diabetes mellitus with other specified complication, unspecified whether middle or intermediate school principal insulin use (CMS/HCC) Expected: 03/17/2025 (Approximate), Expires: 03/17/2026 Microalbumin, Random Urine w/Creatinine Lab Routine Type 2 diabetes mellitus with other specified complication, unspecified whether middle or intermediate school principal insulin use (CMS/HCC) Expected: 03/17/2025 (Approximate), Expires: 03/17/2026 Hemoglobin A1c Lab Routine Type 2 diabetes mellitus with other specified complication, unspecified whether middle or intermediate school principal insulin use (CMS/HCC) Expected: 03/17/2025 (Approximate), Expires: 03/17/2026 Transthoracic Echo (TTE) Complete Echocardiography Routine Primary hypertension Expected: 03/17/2025 (Approximate), Expires: 03/17/2027 Scheduled Referrals Name Type Priority Associated Diagnoses Orde r Schedule Referral to Cardiology Outpatient Referral Routine Primary hypertension Expected: 03/17/2025 (Approximate), Expires: 03/17/2026 Referral to Behavioral Health Outpatient Referral Routine Current mild episode of major depressive disorder without prior episode (CMS/HCC) Expected: 03/17/2025 (Approximate), Expires: 03/17/2026 documented as of this encounter Procedures Procedure Name Priority Date/Time Associated Diagnosis Comments ECG 12-LEAD Routine 03/17/2025 9:58 AM EDT Primary hypertension POCT GLYCATED HEMOGLOBIN, TOTAL Routine 03/17/2025 9:44 AM EDT Type 2 diabetes mellitus with other specified complication, unspecified whether middle or intermediate school principal insulin use (CMS/HCC) POCT GLUCOSE Routine 03/17/2025 9:44 AM EDT Type 2 diabetes mellitus with other specified complication, unspecified whether jail insulin use ([facility]) documented in this encounter Results * ECG 12 lead (03/17/2025 9:58 AM EDT) Mary Vo NP - 03/17/2025 9:59 AM EDT Sinus rhythm, normal EKG Pr 122/154 Qrs 90ms At 394/[address] elevation Mary Reich NP ECG ORDERABLES Edited Result - Final * (ABNORMAL) POCT HGB A1C (03/17/2025 9:44 AM EDT) Hemoglobin A1C 7.6(A) 4.0 - 6.0 % QC Media Lot # [id number] Lot# Expiration Date Blood 03/17/2025 9:44 AM EDT Mary Reich NP POINT OF CARE TEST ENTER/EDIT OR DERABLES Final Result * POCT Glucose (03/17/2025 9:44 AM EDT) Pathologist [facility] Glucose Blood, POC 179 60 - 200 mg/dL QC Media Lot # [id number] Lot# Expiration Date , Blood Capillary blood specimen / Unknown 03/17/2025 9:44 AM EDT Mary Reich NP POINT OF CARE TEST ENTER/EDIT OR DERABLES Final Result documented in this encounter Visit Diagnoses Diagnosis Type 2 diabetes mellitus with other specified complication, unspecified whether middle or intermediate school principal insulin use ([facility])- Primary Chronic pain syndrome Primary hypertension Unspecified essential hypertension Dietary counseling Dietary surveillance and counseling Exercise counseling Long-term current use of opiate analgesic Encounter for long-term (current) use of other medications Chronic midline low back pain with sciatica, sciatica laterality unspecified Current mild episode of major depressive disorder without prior episode ([facility]/HCC) Morbid obesity (CMS/HCC) Morbid obesity documented in this encounter Additional Health Concerns Assessment Noted Time PHQ-9 Depression Total Score: 15 03/17/ 025 10:20 AM EDT documented as of this encounter Care Teams Rerecording Mixer Relationship Specialty Start Date End Date Mary Reich NP [address] [place] [address] PCP - General Family Medicine 06/11/24 documented as of this encounter
[2025-03-20 12:06] LABS: Estimated Average Glucose 174 mg/dL; Hemoglobin A1c % 7.7 % (<6.0)
[2025-03-20 12:19] LABS: Creatinine Urine 209.77 mg/dL; Microalbum/Creatinine Ratio Ur 20.4 ug/mg cr (<30)
[2025-03-20 12:25] LABS: Alanine Aminotransferase 63 U/L (0-40); Albumin Level 4.3 g/dL (3.5-5.0); Alkaline Phosphatase 85 U/L (39-117); Anion Gap 13 (12-20); Aspartate Amino Transferase 71 U/L (5-37); Bilirubin Total 0.5 mg/dL (0.0-1.0); Blood Urea Nitrogen 13 mg/dL (9-16); Carbon Dioxide 28 mmol/L (22-29); Chloride 104 mmol/L (96-108); Cholesterol 192 mg/dL (<200); Estimated Glomerular Filt Rate > 60; Glucose Random 187 mg/dL (60-115); HDL Cholesterol 45 mg/dL (>40); LDL Cholesterol Calculated 104 mg/dL (<100); Potassium 3.7 mmol/L (3.3-5.1); Sodium 141 mmol/L (135-145); Total Protein 7.8 g/dL (6.5-8.0); Triglycerides 215 mg/dL (<150)
== END 2025-03-20 09:39 | disposition home or self-care (01) ==
LOC: HO.HHCL 09:38
PROVIDERS: Nurse Practitioner Family; Visit Provider Nurse Practitioner Family
DX: E11.00 Type 2 diabetes mellitus with hyperosmolarity without nonketotic hyperglycemic-hyperosmolar coma (NKHHC) (principal)
CPT/HCPCS: 36415; 80053; 80061; 82043; 82570; 83036

== ENCOUNTER 2025-03-25 16:12 | Outpatient (REF) | payer OTHER, SELFPAY ==
[2025-03-25 16:30] LABS: Phencyclidine Screen Urine Not Detected (Not Detect)
--- OUTSIDE RECORDS SUMMARY | 2025-03-25 18:56 | XMS_ITS | Encounter Summary ---
Author Organization [employer] Address [address] [place] [address] 7 [place] [address] Care Team Providers Care Gambling Floor Supervisor Name Role Phone aMry Reich NP Primary Care Provider [phone] Reason for Visit * Reason Onset Date Comments telephone call 03/20/2025 Encounter Details Date Type Department Care Team ([facility] st Contact Info) Description 03/20/2025 Telephone [facility] [address] [place] [address] Mary Reich NP [address] [place] [address] telephone call Social History Tobacco Use Types Packs/Day Years Used Date Smoking Tobacco: Former Cigarettes 2 15 Passive Smoke Exposure: Past Smokeless Tobacco: Never Comments:Quit smoking 16 yea rs ago Alcohol Use Standard Drinks/Week Comments Not [...] AM EST documented as of this encounter Miscellaneous Notes * Addendum Note - Herbie Stoner MD - 03/20/2025 10:09 AM EDTAddended by: HERBIE STONER on: 03/20/2025 10:09 AM Modules accepted: Orders * Addendum Note - Felicia Trevino RN - 03/20/2025 10:07 AM EDTAddended by: FELICIA TREVINO on: 03/20/2025 10:07 AM Modules accepted: Orders * Telephone Encounter - Felicia Trevino RN - 03/20/2025 10:02 AM EDT Return TC to patient, pt asking who will be able to send his refill since PCP is away. Assured pt acovering provider will handle the refill. Reminded pt of chronic pain group coming up 03/25/25. * Telephone Encounter - Gris Estes - 03/20/2025 9:30 AM EDT Pt walked in requesting a refill for Oxycodone and he is requesting if you can call him he has a quick question. documented in this encounter Plan of Treatment Upcoming Encounters Date Type Department Care Team (Late st Contact Info) Description 04/22/2025 9:45 AM EDT Office Visit [facility] [address] [place] [address] 05/12/2025 9:30 AM EDT Office Visit [address] [address] Mary Reich NP [address] [place] [address] documented as of this encounter Visit Diagnoses Diagnosis Chronic midline back pain, unspecified back location documented in this encounter Additional Health Concerns Assessment Noted Time PHQ-9 Depression Total Score: 15 025 10:20 AM EDT documented as of this encounter Care Teams Gambling Floor Supervisor Relationship Specialty Start Date End Date Mary Reich NP [address] [place] [address] PCP - General Family Medicine 06/11/24 documented as of this encounter
== END 2025-03-25 16:13 | disposition home or self-care (01) ==
LOC: HO.HHCLNP 16:12
PROVIDERS: Visit Provider Registered Nurse
DX: Z79.891 Long term (current) use of opiate analgesic (principal)
CPT/HCPCS: 80307

== ENCOUNTER 2025-04-22 12:35 | Outpatient (REF) | payer OTHER, SELFPAY ==
--- OUTSIDE RECORDS SUMMARY | 2025-04-22 13:19 | XMS_ITS | Encounter Summary ---
Author Organization [employer] Address [address] [place] [address] 7 [place] [address] Care Team Providers Care Lamp Cleaner Name Role Phone Mary Reich NP Primary Care Provider [phone] Reason for Visit * Reason Comments Med Refill Encounter Details Date Type Department Care Team ([facility] st Contact Info) Description 07/18/2024 Refill [facility] [address] [place] [address] Mary Reich NP [address] [place] [address] Chronic midline back pain, unspecified back location Social History Tobacco Use Types Packs/Day Years Used Date Smoking Tobacco: Former Cigarettes 2 15 Passive Smoke Exposure: Never Smokeless Tobacco: Never Comments:Quit smoking 16 yea rs ago Alcohol Use Standard Drinks/Week Comments Not Currently 0 (1 standard drink = 0.6 oz pur e alcohol) Depression Answer Date Recorded Patient Health Questionnaire-9 Score 14 02/09/2024 Patient Health Questionnaire-9 Score 14 02/09/2024 Last PHQ-9: Questionnaire Data Not on file 0 02/09/2024 Housing Stability Answer Date Recorded What is your housing situation today? I am not s ure 02/09/[address] you li ve. Do you have problems with any of the following? None of the above 02/09/2024 Food Insecurity Answer Date Recorded Within the past 12 months, y ou worried that your food would run out before you got money to buy more: Sometimes True 2023 Within the past 12 months,th e food you bought just didn't last and you didn't have enough money to get more: Sometimes True 02/02/2024 Transportation Answer Date Recorded In the past 12 months, has l ack of transportation kept you from medical appts, meetings, work or from getting things needed for daily living? No 10/06/2023 Utilities Answer Date Recorded In the past 12 months, has t he electric, gas, oil or water company threatened to shut off services in your home? No 10/06/2023 Depression Answer Date Recorded Patient Health Questionnaire-2 Score 4 02/09/2024 Sex and Gender Information Value Date Recorded Sex Assigned at Male 08/22/2023 9:51 AM EST Legal Sex Male 11:23 AM EDT Gender Identity Male 08/22/2023 9:51 AM EST Sexual Orientation Straight 08/22/2023 9: 51 AM EST documented as of this encounter Plan of Treatment Upcoming Encounters Date Type Department Care Team (Late st Contact Info) Description 05/12/2025 9:30 AM EDT Office Visit [facility] [address] [place] [address] Mary Reich NP [address] [place] [address] 06/24/2025 9:45 AM EDT Office Visit [address] [address] documented as of this encounter Visit Diagnoses Diagnosis Chronic midline back pain, unspecified back location documented in this encounter Additional Health Concerns Assessment Noted Time PHQ-9 Depression Total Score: 14 024 1:50 PM EDT documented as of this encounter Care Teams Lamp Cleaner Relationship Specialty Start Date End Date Mary Reich NP [address] [place] [address] PCP - General Family Medicine 06/11/24 documented as of this encounter
[2025-04-25 08:49] LABS: EDDP (Methadone Metabolite) 320 ng/mL; Methadone, Urine MS 480 ng/mL
[2025-04-25 11:18] LABS: Codeine, Ur NEGATIVE
[2025-04-25 11:19] LABS: Hydrocodone, Ur NEGATIVE
[2025-04-25 11:20] LABS: Oxycodone, Ur 1572
[2025-04-25 11:21] LABS: Hydromorphone, Ur NEGATIVE; Morphine, Ur 714
[2025-04-25 11:22] LABS: Oxymorphone, Ur 774
[2025-04-25 11:25] LABS: Norhydrocodone, Ur NEGATIVE
[2025-04-25 11:27] LABS: Noroxycodone, Ur 1964
== END 2025-04-22 12:36 | disposition home or self-care (01) ==
LOC: HO.HHCLNP 12:35
PROVIDERS: Visit Provider Registered Nurse
DX: M54.50 Low back pain, unspecified (principal); G89.29 Other chronic pain
CPT/HCPCS: 80358; 80365; G0480

== ENCOUNTER 2025-06-11 18:00 | Outpatient (REF) | payer OTHER, SELFPAY ==
--- OUTSIDE RECORDS SUMMARY | 2025-06-11 10:00 | XMS_ITS | Encounter Summary ---
Author Organization [employer] Address [address] [place] [address] 7t [place] [address] Care Team Providers Care Licensed Retail Supervisor Name Role Phone Mary Reich MAGNOLIA Primary Care Provider [phone] Reason for Visit * Reason Comments DIGITAL CAMPAIGN SPECIALIST RV Encounter Details Date Type Department Care Team (Latest Contact Info) Description 06/11/2025 10:00 AM EDT Clinical Support [facility] [address] [place] [address] Felicia Trevino RN Long-term current use of opiate analgesic (Primary Dx) Social History Tobacco Use Types Packs/Day Years [...] AM EST documented as of this encounter Progress Notes * Felicia Trevino RN - 06/11/2025 10:00 AM EDT SUBJECTIVE: Tani Cordero is a 50 y.o. year old male who presents for DIGITAL CAMPAIGN SPECIALIST RV Preferred language for medical information: [place] Tani Cordero does not report adherence to Percocet 10 mg, take 1 tablet every 6 hours PRN, last refilled 06/04/2025. 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 He then statedhe knows he has over used them. Pt was agreeable to come back in today between 2:30p-3p with his Percocet for his pill count. Anticipated he would have 83 remaining. Vital Signs Pain Score: 7 Pain Loc: Back Pain Education: Yes Additional pain site: left leg, left inguinal area. Last PCP visit: 05/12/2025 Controlled substance agreement signed: Controlled Substance Agreement 11/29/2024 DIGITAL CAMPAIGN SPECIALIST Tier: 2 Current Medications[1] Smoking status: Denies ETOH use: Denies Illicit substances: Denies Marijuana use: No Lab Results Component Value Date POCTHC Negative 06/11/2025 POCCOCAINEUR Negative 06/11/2025 POCOPIATEUR Negative 06/11/2025 DOAUR Negative 06/11/2025 POCAMPHETAMI Negative 06/11/2025 POCBENZODIUR Negative 06/11/2025 POCBARBSCRN Negative 06/11/2025 POCMETHADOUR Negative 06/11/2025 POCBUPSCRN Negative 06/11/2025 POCTCAUR Positive 06/11/2025 POCMDMAUR Negative 06/11/2025 POCOXYCODONE Positive 06/11/2025 POCPHENCYCUR Positive (A) 06/11/2025 PROPOXUR Negative 06/11/2025 FENTANYLURIN Negative 06/11/2025 Reviewed results with patient. Explained I would send his urine out for PCP confirmation and call him if his results are abnormal. ASSESSMENT: Encounter Diagnosis Name Primary? Long-term current use of opiate analgesic Yes PLAN: Information on pain group given: Previously discussed Information on acupuncture given: Previously discussed Narcan education provided: Previously discussed Narcan prescription: active Lengthy visit with patient discussing his goals for his life, health and family. Assisted patient with connecting with /[place] today, pt said he would like to continue to have Tele therapy moving forward. Will update PCP with UTOX results today, Percocet usgage, send request to PCP for new sleep study referral, plan for his diabetes - since stopped Glipizide 05/20/25 and enquire about his Zepbound status. Per conversation with PCP at this time, pt scheduled to see provider 06/13/25 @ 11:15am to discusshis diabetes. Tani Cordero will continue taking medication as prescribed and follow up at the next DIGITAL CAMPAIGN SPECIALIST visit or sooner if needed. Tani Cordero has verbalized understanding of care plan. Future Appointments Date Time Provider Department Center 06/13/2025 11:15 AM Mary Reich NP MEDICINE [facility] 06/18/2025 9:30 AM Felicia Trevino RN MEDICINE [facility] 06/24/2025 9:45 AM [facility] MEDICINE [facility] 07/07/2025 10:15 AM Mary Reich NP MEDICINE [facility] Felicia Trevino RN 3:16pm - Pt has not returned for his pill count, PCP made aware. [1] Current Outpatient Medications: oxyCODONE-acetaminophen (Percocet) 10-325 MG tablet, Take 1 tablet by mouth every 6 (six) hours if needed for severe pain for up to 28 days., Disp: 112 tablet, Rfl: 0 acetaminophen (Tylenol) 325 MG tablet, TAKE 2 TABLETS BY MOUTH EVERY 4 TO 6 HOURS NEEDED FOR PAIN OR FEVER, Disp: , Rfl: amLODIPine (Norvasc) 10 MG tablet, TAKE 1 TABLET BY MOUTH EVERY DAY IN THE MORNING, Disp: 90 tablet, Rfl: 3 Blood Glucose Monitoring Suppl (St[employer] TechnologiesStyle [place] Lite) w/Device kit, Use to test blood sugar bid dx dm, Disp: 1 kit, Rfl: 0 Blood Pressure kit, 1 kit if needed each day (high blood pressure)., Disp: 1 kit, Rfl: 1 cloNIDine (Catapres) 0.1 MG tablet, Take 2 tablets (0.2 mg) by mouth at bedtime., Disp: 60 tablet, Rfl: 0 cyclobenzaprine (Flexeril) 10 MG tablet, TAKE 1 TABLET BY MOUTH THREE TIMES DAILY as needed FOR 10 DAYS, Disp: 30 tablet, Rfl: 0 FLUoxetine (PROzac) 20 MG capsule, Take 1 capsule (20 mg) by mouth Once per day., Disp: 30 capsule,Rfl: 1 glipiZIDE XL (Glucotrol XL) 2.5 MG 24 hr tablet, Take 1 tablet (2.5 mg) by mouth Once per day. Do not crush, chew, or split., Disp: 30 tablet, Rfl: 1 glucose blood test strip, Use 3 times dialy before meals, Disp: 100 each, Rfl: 12 ibuprofen 800 MG tablet, Take 1 tablet (800 mg) by mouth every 8 (eight) hours if needed for mild pain., Disp: 90 tablet, Rfl: 3 losartan-hydroCHLOROthiazide (Hyzaar) 100-25 MG tablet, TAKE 1 TABLET BY MOUTH EVERY DAY IN THE MORNING, Disp: 90 tablet, Rfl: 3 metFORMIN (Glucophage) 500 MG tablet, TAKE 1 TABLET BY MOUTH EVERY DAY WITH BREAKFAST, Disp: 90 tablet, Rfl: 3 metoprolol tartrate (Lopressor) 25 MG tablet, TAKE 1 TABLET BY MOUTH TWICE DAILY, Disp: 180 tablet,Rfl: 1 Multiple Vitamin (multivitamin) tablet, Take 1 tablet by mouth Once per day. Purchases OTC, Disp: ,Rfl: TRUEplus Lancets 33G misc, 1 Application 3 times daily. TEST BLOOD SUGAR THREE TIMES DAILY, Disp: ,Rfl: documented in this encounter Plan of Treatment Upcoming Encounters Date Type Department Care Team (Late st Contact Info) Description 06/13/2025 11:15 AM EDT Office Visit [address] [address] Mary Reich, MAGNOLIA [address] [place] [address] 06/18/2025 9:30 AM EDT Clinical Support [address] [address] Felicia Trevino RN 06/24/2025 9:45 AM EDT Office Visit [address] [address] 07/07/2025 10:15 AM EDT Office Visit [address] [address] Mary Reich NP [address] [place] [address] Scheduled Orders Name Type Priority Associated Diagnoses Orde r Schedule Phencyclidine Screen, Urine Lab Routine Long-term current use of opiate analgesic Ordered: 06/11/2025 documented as of this encounter Procedures Procedure Name Priority Date/Time Associated Diagnosis Comments POCT JOHN-14 URINE DRUG SCREEN Routine 06/11/2025 12:02 PM EDT Long-term current use of opiate analgesic documented in this encounter Results * (ABNORMAL) POCT JOHN-14 Urine Drug Screen (06/11/2025 12:02 PM EDT) [facility] THC Negative Negative Cocaine Screen, Urine Negative Negative Opiate Screen, Urine Negative Negative Methamphetamine Screen Urine Negative Negative Amphetamine Screen, Urine Negative Negative Benzodiazepines Screen, Urine Negative Negative Barbiturate Screen, Urine Negative Negative Methadone Screen, Urine Negative Negative Buprenophine Screen, Urine Negative Negative TCA, Urine Positive Negative MDMA Urine Negative Negative ng/mL Oxycodone Screen, Urine Positive Negative Phencyclidine (PCP), Urine Positive(A) Negative Propoxyphene, Urine Negative Negative Fentanyl, Urine Negative Negative Urine Urine specimen obtained by clean catch procedure / Unknown 06/11/2025 12:02 PM EDT Felicia Snow RN - 06/11/2025 12:02 PM EDT UTOX cup Lot#[id number] Exp. 07/22/26 Internal Pass Control Mary Reich NP POINT OF CARE TEST ENTER/EDIT OR DERABLES Final Result documented in this encounter Visit Diagnoses Diagnosis Long-term current use of opiate analgesic- Primary Encounter for long-term (current) use of other medications documented in this encounter Additional Health Concerns Assessment Noted Time PHQ-9 Depression Total Score: 15 025 10:20 AM EDT documented as of this encounter Care Teams Licensed Retail Supervisor Relationship Specialty Start Date End Date Mary Reich NP [address] [place] [address] PCP - General Family Medicine 06/11/24 documented as of this encounter
--- OUTSIDE RECORDS SUMMARY | 2025-06-11 18:04 | XMS_ITS | Encounter Summary ---
Author Organization [employer] Address [address] [place] [address] 7 [place] [address] Care Team Providers Care Supervisor Filtration Name Role Phone Mary Reich MAGNOLIA Primary Care Provider [phone] Reason for Visit * Reason Onset Date Comments Med Refill 05/15/2025 Encounter Details Date Type Department Care Team ([facility] st Contact Info) Description 05/15/2025 Refill [facility] [address] [place] [address] Yu Bellamy FNP [address] [place] [address] Type 2 diabetes mellitus with hyperosmolarity without coma, without long-term current use of insulin ([facility]) Social History Tobacco Use Types Packs/Day Years [...] Description 06/13/2025 11:15 AM EDT Office Visit [address] [address] Mary Reich NP [address] [place] [address] 06/18/2025 9:30 AM EDT Clinical Support [address] [address] Felicia Trevino RN 06/24/2025 9:45 AM EDT Office Visit [address] [address] 07/07/2025 10:15 AM EDT Office Visit [address] [address] Mary Reich NP [address] [place] [address] documented as of this encounter Visit Diagnoses Diagnosis Type 2 diabetes mellitus with hyperosmolarity without coma, without long-term current use of insulin ([facility]) documented in this encounter Additional Health Concerns Assessment Noted Time PHQ-9 Depression Total Score: 15 025 10:20 AM EDT documented as of this encounter Care Teams Supervisor Filtration Relationship Specialty Start Date End Date Mary Reich NP [address] [place] [address] PCP - General Family Medicine 06/11/24 documented as of this encounter
--- OUTSIDE RECORDS SUMMARY | 2025-06-11 18:04 | XMS_ITS | Encounter Summary ---
Author Organization [employer] Address [address] [facility] 7t [place] [address] Care Team Providers Care Receiving Associate Store Name Role Phone Yu Bellamy Primary Care Provider [phone] Mary Reich NP Primary Care Provider [phone] Reason for Visit * Reason Comments Med Refill Encounter Details Date Type Department Care Team (Late st Contact Info) Description 05/20/2024 Refill [facility] [address] [place] [address] Yu Bellamy FNP [address] [place] [address] Social History Tobacco Use Types Packs/Day Years [...] Description 06/13/2025 11:15 AM EDT Office Visit [address] [address] Mary Reich NP [address] [place] [address] 06/18/2025 9:30 AM EDT Clinical Support [address] [address] Felicia Trevino RN 06/24/2025 9:45 AM EDT Office Visit [address] [address] 07/07/2025 10:15 AM EDT Office Visit [address] [address] Mary Reich NP [address] [place] [address] documented as of this encounter Visit Diagnoses Not on filedocumented in this encounter Additional Health Concerns Assessment Noted Time PHQ-9 Depression Total Score: 14 024 1:50 PM EDT documented as of this encounter Care Teams Receiving Associate Store Relationship Specialty Start Date End Date Yu Bellamy FNP [address] [place] [address] PCP - General Family Medicine 10/06/23 06/10/24 Mary Reich NP [address] [place] [address] PCP - General Family Medicine 06/11/24 documented as of this encounter
--- OUTSIDE RECORDS SUMMARY | 2025-06-11 18:04 | XMS_ITS | Encounter Summary ---
Author Organization [employer] Address [address] [place] [address] 7 [place] [address] Care Team Providers Care Inspector Balance Wheel Motion Name Role Phone Mary Reich NP Primary Care Provider [phone] Reason for Visit * Reason Comments Med Refill Encounter Details Date Type Department Care Team ([facility] st Contact Info) Description 07/18/2024 Refill [facility] [address] [place] [address] Mary Reich NP [address] [place] [address] Chronic midline back pain, unspecified back location [...] 06/13/2025 11:15 AM EDT Office Visit [address] [address] Mary Reich NP [address] [place] [address] 06/18/2025 9:30 AM EDT Clinical Support [address] [address] Felicia Trevino RN 06/24/2025 9:45 AM EDT Office Visit [address] [address] 07/07/2025 10:15 AM EDT Office Visit [address] [address] Mary Reich NP [address] [place] [address] documented as of this encounter Visit Diagnoses Diagnosis Chronic midline back pain, unspecified back location documented in this encounter Additional Health Concerns Assessment Noted Time PHQ-9 Depression Total Score: 14 024 1:50 PM EDT documented as of this encounter Care Teams Inspector Balance Wheel Motion Relationship Specialty Start Date End Date Mary Reich NP [address] [place] [address] PCP - General Family Medicine 06/11/24 documented as of this encounter
--- OUTSIDE RECORDS SUMMARY | 2025-06-11 18:04 | XMS_ITS | Encounter Summary ---
Author Organization [employer] Address [address] [place] [address] 7 [place] [address] Care Team Providers Care Medical Records Secretary Name Role Phone Yu Bellamy Primary Care Provider [phone] Mary Reich NP Primary Care Provider [phone] Reason for Visit * Reason Onset Date Comments Med Refill 12/22/2023 Encounter Details Date Type Department Care Team ([facility] st Contact Info) Description 12/22/2023 Telephone [facility] [address] [place] [address] Yu Bellamy FNP [address] [place] [address] Med Refill Social History Tobacco Use Types Packs/Day Years Used Date Smoking Tobacco: Former Cigarettes 2 15 Passive Smoke Exposure: Never Smokeless Tobacco: Never Comments:Quit smoking 16 yea rs ago Alcohol Use Standard Drinks/Week Comments Not Currently 0 (1 standard drink = 0.6 oz pur e alcohol) Depression Answer Date Recorded Patient Health Questionnaire-9 Score 0 10/06/2023 Patient Health Questionnaire-9 Score 0 10/06/2023 Last PHQ-9: Questionnaire Data Not on file 1 12/07/2022 Housing Stability Answer Date Recorded What is your housing situation today? I have lilo ponce 10/06/[address] you li ve. Do you have problems with any of the following? None of the above 10/06/2023 Food Insecurity Answer Date Recorded Within the past 12 months, y ou worried that your food would run out before you got money to buy more: Never True 10/06/2023 Within the past 12 months,th e food you bought just didn't last and you didn't have enough money to get more: Never True Transportation Answer Date Recorded In the past [...] Answer Date Recorded Patient Health Questionnaire-2 Score 0 10/06/2023 Sex and Gender Information Value Date Recorded Sex Assigned at Male 08/22/2023 9:51 AM EST Legal Sex Male 11:23 AM EDT Gender Identity Male 08/22/2023 9:51 AM EST Sexual Orientation Straight 08/22/2023 9: 51 AM EST documented as of this encounter Miscellaneous Notes * Telephone Encounter - Elias Bethea RN - 12/25/2023 9:27 AM EDT Noted, Thanks * Telephone Encounter - Alicia Troncoso - 12/22/2023 12:16 PM EST Tc from pt requesting a higher dose for Trulicity, poem writer call Pharmacy and they stated have in stock 3MG or 4.5 documented in this encounter Plan of Treatment Upcoming Encounters Date Type Department Care Team (Late st Contact Info) Description 06/13/2025 11:15 AM EDT Office Visit [facility] [address] [place] [address] Mary Reich NP [address] [place] [address] 06/18/2025 9:30 AM EDT Clinical Support [facility] [address] [place] [address] Felicia Trevino RN 06/24/2025 9:45 AM EDT Office Visit [address] [address] 07/07/2025 10:15 AM EDT Office Visit [facility] [address] [place] [address] Mary Reich NP [address] [place] [address] documented as of this encounter Visit Diagnoses Not on filedocumented in this encounter Additional Health Concerns Assessment Noted Time PHQ-9 Depression Total Score: 0 10/06/20 23 3:49 PM EST documented as of this encounter Care Teams Medical Records Secretary Relationship Specialty Start Date End Date Yu Bellamy FNP [address] [place] [address] PCP - General Family Medicine 10/06/23 06/10/24 Mary Reich NP [address] [place] [address] PCP - General Family Medicine 06/11/24 documented as of this encounter
--- OUTSIDE RECORDS SUMMARY | 2025-06-11 18:04 | XMS_ITS | Encounter Summary ---
Author Organization [employer] Address [address] [place] [address] 7 [place] [address] Care Team Providers Care Sap Business Objects Consultant Name Role Phone Mary Reich MAGNOLIA Primary Care Provider [phone] Reason for Visit * Reason Onset Date Comments Med Refill 04/04/2025 Encounter Details Date Type Department Care Team ([facility] st Contact Info) Description 04/04/2025 Refill [facility] [address] [place] [address] Yu Bellamy FNP [address] [place] [address] Type 2 diabetes mellitus with hyperosmolarity without coma, without long-term current use of insulin ([facility]) Social History Tobacco Use Types [...] Description 06/13/2025 11:15 AM EDT Office Visit [address] [address] Mary Reich NP [address] [place] [address] 06/18/2025 9:30 AM EDT Clinical Support [address] [address] Felicia Trevino RN 06/24/2025 9:45 AM EDT Office Visit [address] [address] 07/07/2025 10:15 AM EDT Office Visit [address] [address] Mary Reich NP [address] [place] [address] documented as of this encounter Visit Diagnoses Diagnosis Type 2 diabetes mellitus with hyperosmolarity without coma, without long-term current use of insulin ([facility]) documented in this encounter Additional Health Concerns Assessment Noted Time PHQ-9 Depression Total Score: 15 025 10:20 AM EDT documented as of this encounter Care Teams Sap Business Objects Consultant Relationship Specialty Start Date End Date Mary Reich NP [address] [place] [address] PCP - General Family Medicine 06/11/24 documented as of this encounter
--- OUTSIDE RECORDS SUMMARY | 2025-06-11 18:04 | XMS_ITS | Encounter Summary ---
Author Organization [employer] Address [address] [place] [address] 7 [place] [address] Care Team Providers Care Speedometer Mechanic Name Role Phone Mary Reich NP Primary Care Provider [phone] Reason for Visit * Reason Onset Date Comments Med Refill 04/22/2025 Encounter Details Date Type Department Care Team ([facility] st Contact Info) Description 04/22/2025 Refill [facility] MEDICINE [address] [place], [place] [phone] Mary Reich NP [address] [place] [address] Chronic midline back pain, unspecified back location [...] encounter Miscellaneous Notes * Telephone Encounter - Rosa Isela Poole RN - 04/22/2025 1:24 PM EDT [employer] checked by account underwriter on 04/22/25. Pt picked up a 28 day supply of oxyCODONE- acetaminophen (Percocet) 10-325 MG tablet on 03/20/25. Pt due for refill. Medication pended to PCP for review. * Telephone Encounter - Domo Boss - 04/22/2025 12:25 PM EDT TC from pt requesting medication refill. Medications needing refill : oxyCODONE-acetaminophen (Percocet) 10-325 MG tablet To be sent to: [facility] documented in this encounter Plan of Treatment Upcoming Encounters Date Type Department Care Team (Late st Contact Info) Description 06/13/2025 11:15 AM EDT Office Visit [facility] MEDICINE [address] [place] [address] Mary Reich NP [address] [place] [address] 06/18/2025 9:30 AM EDT Clinical Support [address] [address] Felicia Trevino RN 06/24/2025 9:45 AM EDT Office Visit [address] [address] 07/07/2025 10:15 AM EDT Office Visit [address] [address] Mary Reich NP [address] [place] [address] documented as of this encounter Visit Diagnoses Diagnosis Chronic midline back pain, unspecified back location documented in this encounter Additional Health Concerns Assessment Noted Time PHQ-9 Depression Total Score: 15 03/17/ 025 10:20 AM EDT documented as of this encounter Care Teams Speedometer Mechanic Relationship Specialty Start Date End Date Mary Reich NP [address] [place] [address] PCP - General Family Medicine 06/11/24 documented as of this encounter
--- OUTSIDE RECORDS SUMMARY | 2025-06-11 18:04 | XMS_ITS | Encounter Summary ---
Author Organization [employer] Address [address] [place] [address] 7t [place] [address] Care Team Providers Care Chainstitch Pants Outseamer Name Role Phone Vanessaonel Mary MAGNOLIA Primary Care Provider [phone] Reason for Visit * Reason Onset Date Comments UTOX Pos PCP, sent for confirmation 06/11/2025 Encounter Details Date Type Department Care Team ([facility] st Contact Info) Description 06/11/2025 Telephone [facility] MEDICINE [address] [place], [place] [phone] Felicia Trevino RN UTOX Pos PCP, sent for confirmation Social History Tobacco Use Types Packs/Day Years [...] encounter Miscellaneous Notes * Telephone Encounter - Felicia Trevino RN - 06/11/2025 3:17 PM EDT Pt did not return for his Percocet pill count. 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 Pt admitting to using 8-9 doses Percocet a day. Forgot to bring his Percocet to todays appt, but will come back this afternoon for his count. Will update count after his return. Pt added to your scheduled for 06/13/25. documented in this encounter Plan of Treatment Upcoming Encounters Date Type Department Care Team (Late st Contact Info) Description 06/13/2025 11:15 AM EDT Office Visit [facility] MEDICINE [address] [place] [address] Mary Reich NP [address] [place] [address] 06/18/2025 9:30 AM EDT Clinical Support [facility] MEDICINE [address] [place] [address] Felicia Trevino RN 06/24/2025 9:45 AM EDT Office Visit [facility] MEDICINE [address] [place] [address] 07/07/2025 10:15 AM EDT Office Visit [facility] MEDICINE [address] [place] [address] Mary Reich NP [address] [place] [address] documented as of this encounter Visit Diagnoses Not on filedocumented in this encounter Additional Health Concerns Assessment Noted Time PHQ-9 Depression Total Score: 15 03/17/ 025 10:20 AM EDT documented as of this encounter Care Teams Chainstitch Pants Outseamer Relationship Specialty Start Date End Date Mary Reich NP [address] [place] [address] PCP - General Family Medicine 06/11/24 documented as of this encounter
--- OUTSIDE RECORDS SUMMARY | 2025-06-11 18:04 | XMS_ITS | Encounter Summary ---
Author Organization [employer] Address [address] [place] [address] 7 [place] [address] Care Team Providers Care Dewatering Filtering Supervisor Name Role Phone Mary Reich NP Primary Care Provider [phone] Reason for Visit * Reason Comments Med Refill Encounter Details Date Type Department Care Team ([facility] st Contact Info) Description 11/18/2024 Refill [facility] MEDICINE [address] [place] [address] Mary Reich NP [address] [place] [address] Chronic midline back pain, unspecified back location [...] Description 06/13/2025 11:15 AM EDT Office Visit [address] [address] Mary Reich NP [address] [place] [address] 06/18/2025 9:30 AM EDT Clinical Support [address] [address] Felicia Trevino RN 06/24/2025 9:45 AM EDT Office Visit [address] [address] 07/07/2025 10:15 AM EDT Office Visit [address] [address] Mary Reich NP [address] [place] [address] documented as of this encounter Visit Diagnoses Diagnosis Chronic midline back pain, unspecified back location documented in this encounter Additional Health Concerns Assessment Noted Time PHQ-9 Depression Total Score: 14 024 1:50 PM EDT documented as of this encounter Care Teams Dewatering Filtering Supervisor Relationship Specialty Start Date End Date Mary Reich NP [address] [place] [address] PCP - General Family Medicine 06/11/24 documented as of this encounter
--- OUTSIDE RECORDS SUMMARY | 2025-06-11 18:04 | XMS_ITS | Encounter Summary ---
Author Organization [employer] Address [address] [facility] 7t [place] [address] Care Team Providers Care Class B Truck Driver Name Role Phone Mary Reich NP Primary Care Provider [phone] Encounter Details Date Type Department Care Team ([facility] st Contact Info) Description 03/31/2025 Telephone [facility] MED & PEDS [address] [place] [address] Mary Reich NP [address] [facility] [place] [address] Social History Tobacco Use Types Packs/Day Years [...] Description 06/13/2025 11:15 AM EDT Office Visit [address] [address] Mary Reich NP [address] [place] [address] 06/18/2025 9:30 AM EDT Clinical Support [address] [address] Felicia Trevino RN 06/24/2025 9:45 AM EDT Office Visit [address] [address] 07/07/2025 10:15 AM EDT Office Visit [address] [address] Mary eRich NP [address] [place] [address] documented as of this encounter Visit Diagnoses Not on filedocumented in this encounter Additional Health Concerns Assessment Noted Time PHQ-9 Depression Total Score: 15 025 10:20 AM EDT documented as of this encounter Care Teams Class B Truck Driver Relationship Specialty Start Date End Date Mary Reich NP [address] [place] [address] PCP - General Family Medicine 06/11/24 documented as of this encounter
--- OUTSIDE RECORDS SUMMARY | 2025-06-11 18:04 | XMS_ITS | Encounter Summary ---
Author Organization [employer] Address [address] [facility] 7t [place] [address] Care Team Providers Care Repairer Shoe Sticks Name Role Phone Yu Bellamy Primary Care Provider [phone] Mary Reich NP Primary Care Provider Encounter Details Date Type Department Care Team ([facility] st Contact Info) Description 12/13/2023 Orders Only [facility] CHC MED & PEDS [address] [place] [address] Yu Bellamy FNP [address] [place] [address] Social History Tobacco Use Types Packs/Day Years [...] Description 06/13/2025 11:15 AM EDT Office Visit [address] [address] Mary Reich NP [address] [place] [address] 06/18/2025 9:30 AM EDT Clinical Support [address] [address] Felicia Trevino RN 06/24/2025 9:45 AM EDT Office Visit [address] [address] 07/07/2025 10:15 AM EDT Office Visit [address] [address] Mary Reich NP [address] [place] [address] documented as of this encounter Procedures Procedure Name Priority Date/Time Associated Diagnosis Comments GLUCOSE, WHOLE BLOOD Routine 03/06/2024 8:11 AM EDT BASIC METABOLIC PANEL, FASTING Routine 03/06/2024 7:40 AM EDT CBC Routine 03/06/2024 7:40 AM EDT documented in this encounter Results * (ABNORMAL) Glucose, Whole Blood (03/06/2024 8:11 AM EDT) Glucose, Whole Blood 125(H) 60 - 115 mg/dL [facility] Comment:METER #: [id number] 03/06/2024 8:11 AM EDT 03/06/2024 8:15 AM EDT us Generic External Data Provider LAB BLOOD ORDERAB LES Final Result [facility] [address] [place], [place] [phone] * (ABNORMAL) Basic Metabolic Panel, Fasting (03/06/2024 7:40 AM EDT) Sodium 143 135 - 145 mmol/L [facility] Potassium 3.7 3.3 - 5.1 mmol/L [facility] Chloride 104 96 - 108 mmol/L [facility] Carbon Dioxide 29 22 - 29 mmol/L [facility] Anion Gap 14 12 - 20 [facility] Urea Nitrogen (BUN) 12 9 - 16 mg/dL [facility] Creatinine, Serum 0.67 0.5 - 1.4 mg/dL [facility] Creatinine Clr Calc Pharmacy 185.3 [facility] Comment:eGFR (calculated fro m the MDRD study equation) and eCrCl(calculated from the Cockcroft-Gault equation) are based ondifferent parameters and may not yield comparable results.If eCrCl result is absurd, please check patient'sheight/weight. Estimated Glomerular Filt Rate >60 [facility] Comment:NOTE: For -Am erican individuals, multiply the result by 1.210.Chronic Kidney Disease: Estimated GFR < 60 mL/min/1.25i5Npmpno Kidney Disease: Estimated GFR < 15 mL/min/1.73m2 Glucose Fasting 132(H) 60 - 99 mg/dL [facility] Comment:A fasting glucose of 126 mg/dl or greater on more than oneoccasion is considered diagnostic of diabetes. Calcium 9.4 8.4 - 10.2 mg/dL [facility] 03/06/2024 7:40 AM EDT 03/06/2024 7:55 AM EDT us Generic External Data Provider LAB BLOOD ORDERAB LES Final Result Performing Organization Address City/[facility]/ZIP Co de Phone Number [facility] [address] [place] [phone] * (ABNORMAL) CBC (03/06/2024 7:40 AM EDT) White Blood Count 6.3 4.8 - 10.8 X10*3/uL [facility] Red Blood Count 4.84 4.60 - 5.80 X10*6/uL [facility] Hemoglobin 13.7(L) 14.0 - 18.0 g/dl [facility] Hematocrit 41.2(L) 42.0 - 52.0 % [facility] Mean Corpuscular Volume 85.1 80.0 - 98.0 fL [facility] Mean Corpuscular Hemoglobin 28.3 27.0 - 33.0 pg [facility] Mean Corpuscular HGB Conc 33.3 31.0 - 36.0 g/dl [facility] Red Cell Distribution Width 13.9 11.0 - 16.0 % [facility] Platelet Count 198 160 - 400 X10*3/uL [facility] Mean Platelet Volume 9.9 9.4 - 12.4 fL [facility] NRBC Pct Auto 0.0 0.0 - 0.2 /100WBC [facility] NRBC Abs Auto 0.000 0.0 - 0.012 X10*3/uL [facility] 03/06/2024 7:40 AM EDT 03/06/2024 7:55 AM EDT us Generic External Data Provider LAB BLOOD ORDERAB LES Final Result [facility] [address] [place] [address] [phone] documented in this encounter Visit Diagnoses Not on filedocumented in this encounter Additional Health Concerns Assessment Noted Time PHQ-9 Depression Total Score: 0 10/06/20 3:49 PM EST documented as of this encounter Care Teams Repairer Shoe Sticks Relationship Specialty Start Date End Date Yu Bellamy FNP [address] [place] [address] PCP - General Family Medicine 10/06/23 06/10/24 Mary Reich NP [address] [place] [address] PCP - General Family Medicine 06/11/24 documented as of this encounter
--- OUTSIDE RECORDS SUMMARY | 2025-06-11 18:04 | XMS_ITS | Encounter Summary ---
Author Organization [employer] Address [address] [place] [address] 7 [place] [address] Care Team Providers Care Deputy Coroner Name Role Phone Yu Bellamy Primary Care Provider [phone] Mary Reich NP Primary Care Provider [phone] Reason for Visit * Reason Comments Med Refill Encounter Details Date Type Department Care Team (Late st Contact Info) Description 01/30/2024 Refill [facility] MEDICINE [address] [place] [address] Yu Bellamy FNP [address] [place] [address] Chronic midline back pain, unspecified back location [...] What is your housing situation today? I do not have housing (Staying with others, in a hotel, in a snf, living outside on the street, on a beach, in a car, or in a park 02/02/[address] you li ve. Do you have problems with any of the following? None of the above 02/02/2024 Food Insecurity Answer Date Recorded Within the [...] 06/13/2025 11:15 AM EDT Office Visit [address] [address] Mary Reich NP [address] [place] [address] 06/18/2025 9:30 AM EDT Clinical Support [address] [address] Felicia Trevino RN 06/24/2025 9:45 AM EDT Office Visit [address] [address] 07/07/2025 10:15 AM EDT Office Visit [address] [address] Mary Reich NP [address] [place] [address] documented as of this encounter Visit Diagnoses Diagnosis Chronic midline back pain, unspecified back location documented in this encounter Additional Health Concerns Assessment Noted Time PHQ-9 Depression Total Score: 0 10/06/20 3:49 PM EST documented as of this encounter Care Teams Deputy Coroner Relationship Specialty Start Date End Date Yu Bellamy FNP [address] [place] [address] PCP - General Family Medicine 10/06/23 06/10/24 Mary Reich NP [address] [place] [address] PCP - General Family Medicine 06/11/24 documented as of this encounter
--- OUTSIDE RECORDS SUMMARY | 2025-06-11 18:04 | XMS_ITS | Encounter Summary ---
Author Organization [employer] Address [address] [place] [address] 7 [place] [address] Care Team Providers Care Treating And Pumping Supervisor Name Role Phone Mary Reich NP Primary Care Provider [phone] Reason for Visit * Reason Onset Date Comments Med Refill 04/15/2025 Prior Authorization 04/15/2025 Encounter Details Date Type Department Care Team (Late st Contact Info) Description 04/15/2025 Refill [facility] MED & PEDS [address] [place] [address] Mary Reich NP [address] [place] [address] Type 2 diabetes mellitus with other specified complication, unspecified whether terminal carman insulin use ([facility]) Social History Tobacco Use Types Packs/Day Years [...] encounter Miscellaneous Notes * Telephone Encounter - Lorena Castelan - 04/22/2025 4:29 PM EDT PA for Trulicity initiated in [employer]. Pending decision. If patient calls to check status on above, please advise them to contact Pharmacy . documented in this encounter Plan of Treatment Upcoming Encounters Date Type Department Care Team ([facility] st Contact Info) Description 06/13/2025 11:15 AM EDT Office Visit [address] [address] Mary Reich NP [address] [place] [address] 06/18/2025 9:30 AM EDT Clinical Support [address] [address] Felicia Trevino, AMER[place] 06/24/2025 9:45 AM EDT Office Visit [address] [address] 07/07/2025 10:15 AM EDT Office Visit [address] [place] [address] Mary Reich NP [address] [place] [address] documented as of this encounter Visit Diagnoses Diagnosis Type 2 diabetes mellitus with other specified complication, unspecified whether terminal carman insulin use ([facility]) documented in this encounter Additional Health Concerns Assessment Noted Time PHQ-9 Depression Total Score: 15 025 10:20 AM EDT documented as of this encounter Care Teams Treating And Pumping Supervisor Relationship Specialty Start Date End Date Mary Reich NP [address] [place] [address] PCP - General Family Medicine 06/11/24 documented as of this encounter
--- OUTSIDE RECORDS SUMMARY | 2025-06-11 18:04 | XMS_ITS | Encounter Summary ---
Author Organization [employer] Address [address] [place] [address] 7t [place] [address] Care Team Providers Care Telemetry Rn Name Role Phone Mary Reich MAGNOLIA Primary Care Provider [phone] Reason for Visit * Reason Onset Date Comments Med Refill 05/16/2025 Encounter Details Date Type Department Care Team ([facility] st Contact Info) Description 05/16/2025 Refill [facility] CHC MED & PEDS [address] [place], [place] [phone] Jil Ag MD [address] [place] [address] Chronic midline back pain, unspecified back location [...] Description 06/13/2025 11:15 AM EDT Office Visit [address] [address] Mary Reich NP [address] [place] [address] 06/18/2025 9:30 AM EDT Clinical Support [address] [address] Felicia Trevino RN 06/24/2025 9:45 AM EDT Office Visit [address] [address] 07/07/2025 10:15 AM EDT Office Visit [address] [address] Mary Reich NP [address] [place] [address] documented as of this encounter Visit Diagnoses Diagnosis Chronic midline back pain, unspecified back location documented in this encounter Additional Health Concerns Assessment Noted Time PHQ-9 Depression Total Score: 15 025 10:20 AM EDT documented as of this encounter Care Teams Telemetry Rn Relationship Specialty Start Date End Date Mary Reich NP [address] [place] [address] PCP - General Family Medicine 06/11/24 documented as of this encounter
--- OUTSIDE RECORDS SUMMARY | 2025-06-11 18:04 | XMS_ITS | Clinical Summary ---
Author Organization [employer] Address [address] [place] [address] [address] [place] [address] Care Team Providers Care Deckhand Maintenance Name Role Phone VanessaMary sykes MAGNOLIA Primary Care Provider [phone] Allergies No known active allergies Medications * This document contains information received from the source organization and may not represent a complete record from that organization. Multiple Vitamin (multivitamin) tablet Take 1 tablet by mouth Once per day. Purchases OTC Active acetaminophen (Tylenol) 325 MG tablet TAKE 2 TABLETS BY MOUTH EVERY 4 TO 6 HOURS NEEDED FOR PAIN OR FEVER Active metoprolol tartrate (Lopressor) 25 MG tablet TAKE 1 TABLET BY MOUTH TWICE DAILY 180 tablet 1 Active Blood Glucose Monitoring Suppl (Sian's Plan [place] Lite) w/Device kitIndications:Con trolled type 2 diabetes mellitus without complication, without long-term current use of insulin (CMS/[facility]) Use to test blood sugar bid dx dm 1 kit Active glucose blood test stripIndications:C ontrolled type 2 diabetes mellitus without complication, without long-term current use of insulin (CMS/HCC) Use 3 times dialy before meals 100 each 12 2024 Active TRUEplus Lancets 33G misc 1 Application 3 times daily. TEST BLOOD SUGAR THREE TIMES DAILY Active Blood Pressure kitIndications:Hyp ertension, unspecified type 1 kit if needed each day (high blood pressure). 1 kit 1 Active metFORMIN (Glucophage) 500 MG tabletIndications: Type 2 diabetes mellitus with hyperosmolarity without coma, without long-term current use of insulin (CMS/HCC) TAKE 1 TABLET BY MOUTH EVERY DAY WITH BREAKFAST 90 tablet 3 Active losartan-hydroCHLO ROthiazide (Hyzaar) 100-25 MG tabletIndications: Hypertension, unspecified type TAKE 1 TABLET BY MOUTH EVERY DAY IN THE MORNING 90 tablet 3 Active amLODIPine (Norvasc) 10 MG tabletIndications: Hypertension, unspecified type TAKE 1 TABLET BY MOUTH EVERY DAY IN THE MORNING 90 tablet 3 Active FLUoxetine (PROzac) 20 MG capsule Take 1 capsule (20 mg) by mouth Once per day. 30 capsule 1 025 2024 Active cloNIDine (Catapres) 0.1 MG tablet Take 2 tablets (0.2 mg) by mouth at bedtime. 60 tablet Active glipiZIDE XL (Glucotrol XL) 2.5 MG 24 hr tablet Take 1 tablet (2.5 mg) by mouth Once per day. Do not crush, chew, or split. 30 tablet 1 025 2025 Active ibuprofen 800 MG tabletIndications: Unspecified fracture of shaft of unspecified ulna, subsequent encounter for closed fracture with routine healing Take 1 tablet (800 mg) by mouth every 8 (eight) hours if needed for mild pain. 90 tablet 3 Active oxyCODONE-acetamin ophen (Percocet) 10-325 MG tabletIndications: Chronic midline back pain, unspecified back location Take 1 tablet by mouth every 6 (six) hours if needed for severe pain for up to 28 days. 112 tablet 025 2024 Active cyclobenzaprine (Flexeril) 10 MG tabletIndications: Chronic midline back pain, unspecified back location TAKE 1 TABLET BY MOUTH THREE TIMES DAILY as needed FOR 10 DAYS 30 tablet Active ibuprofen 800 MG tabletIndications: Unspecified fracture of shaft of unspecified ulna, subsequent encounter for closed fracture with routine healing Take 1 tablet (800 mg) by mouth every 8 (eight) hours if needed for mild pain. 90 tablet 3 025 2024 Discontinued(R eorder (will not trigger notification to Pharmacy)) cyclobenzaprine (Flexeril) 10 MG tabletIndications: Chronic midline back pain, unspecified back location TAKE 1 TABLET BY MOUTH THREE TIMES DAILY FOR 10 DAYS 30 tablet 025 2024 Discontinued(R eorder (will not trigger notification to Pharmacy)) clotrimazole (Mycelex) 10 MG trocheIndications: Candidiasis Take 1 tablet (10 mg) by mouth 5 (five) times a day for 7 days. 35 tablet 025 2024 oxyCODONE-acetamin ophen (Percocet) 10-325 MG tabletIndications: Chronic midline back pain, unspecified back location Take 1 tablet by mouth every 6 (six) hours if needed for severe pain for up to 28 days. Do not start before May 06, 2025. 112 tablet 025 2024 Discontinued(R eorder (will not trigger notification to Pharmacy)) Tirzepatide-Weight Management (Zepbound) 2.5 MG/0.5ML solution auto-injectorIndic ations:Morbid obesity (CMS/HCC),Resistan t hypertension,Other sleep apnea Inject 0.5 mL (2.5 mg) under the skin 1 (one) time per week for 28 days. 2 mL 025 2024 cyclobenzaprine (Flexeril) 10 MG tabletIndications: Chronic midline back pain, unspecified back location TAKE 1 TABLET BY MOUTH THREE TIMES DAILY FOR 10 DAYS 30 tablet 025 2024 Discontinued(R eorder (will not trigger notification to Pharmacy)) Active Problems Problem Noted Date Diagnosed Date Other sleep apnea 05/12/2025 Candidiasis 05/05/2025 Assessment & Plan (05/05/2025 4:27 PM EDT): Rx as written below, has follow up in 1 week Abdominal obesity 05/02/2025 CARMEN on CPAP 05/02/2025 Chronic pain syndrome 03/17/2025 Morbid obesity 03/17/2025 Assessment & Plan (03/17/2025 12:48 PM EDT): [facility] Results Component Value Date HGBA1C 7.6 (A) 03/17/2025 Current mild episode of lyn r depressive disorder without prior episode 03/17/2025 Assessment & Plan (03/17/2025 12:48 PM EDT): Increased panic, self stopped sertraline, trial cymbalta Referral to Type 2 diabetes mellitus with other specified co mplication 12/27/2024 Long-term current use of opiate analgesic 2024 Overview (03/24/2025): Medication: Percocet 10/325mg Q6H PRN Indication: chronic midline back pain, left shoulder pain Last DESK MONITOR Agreement: 11/26/24 Tier 2, q3 month visits Assessment & Plan (05/05/2025 4:29 PM EDT): Utox + methadone on confirmation, pt denies illicit or non prescribed mediation usage, reviewed urine findings and recommend random pill count/utox. If positive pt is aware contract would be violated. Pt verbalizes understanding Assessment & Plan (04/22/2025 7:30 PM EDT): Timeline: 03/25/25: Group - utox/pill count not as expected. Confirmatory pending. Pill count pending. 04/22/25: Group - pill count as expected. Utox not as expected - confirmatory pending. Assessment & Plan (03/27/2025 2:20 PM EDT): Timeline: 03/25/25: Group - utox/pill count not as expected. Confirmatory pending. Pill count pending. Assessment & Plan (03/17/2025 12:47 PM EDT): Pt reports has called and plans to estblish EMR usage for future communications related to pain group. Pain not managed , but pt does not want to increase opiate therapy Gabapentin caused headaches, add cymbalta for panic and pain Dietary counseling 09/02/2024 Assessment & Plan (03/17/2025 12:45 PM EDT): Dietary Recommendations: Fruits, vegetables, whole grains, protein foods, and fat-free or low-fat dairy products are healthy choices. Eat different types of protein foods in your diet. This can include seafood, lean meats, poultry, beans, peas, lentils, nuts, seeds, soy products, and eggs. Limit foods and beverages higher in added sugars, saturated fat, and sodium. Exercise Recommendations: At least 150 minutes of moderate-intensity physical activity per week, or an equivalent combination of moderate- and vigorous-intensity activity Assessment & Plan (09/02/2024 10:34 AM EST): Encouraged minimizing processed foods and increasing whole foods particularly vegetables Exercise counseling 09/02/2024 Assessment & Plan (09/02/2024 10:34 AM EST): Encouraged daily movement, working up to 30 minutes daily Diarrhea 09/02/2024 Assessment & Plan (09/02/2024 10:34 AM EST): Acute watery diarrhea, improving, Metabolic labs ordered, possibly related to glp-1 Reviewed if pain returns will need CT Infectious stool labs ordered, and pt advsied to collect if symptoms persist Snoring 09/02/2024 Assessment & Plan (09/02/2024 10:32 AM EST): Pt with history of positive sleep study, does not have cpap, will refer to sleep medicine Memory loss 09/02/2024 Assessment & Plan (09/02/2024 10:37 AM EST): Family endorses bouts of spacing out x 2 years , pt is alert and oriented today to person and place, Has dicontinued gabapentin but uncertain if any improvement Metabolic labs ordered If no clear etiology, brain imaging will be ordered Hypertension 09/01/2024 Assessment & Plan (05/05/2025 4:30 PM EDT): Above goal, add clonidine at night for both panic and bp, Pt has been referred to cardiology will schedule, Assessment & Plan (03/17/2025 12:45 PM EDT): Above goal, on losartan, hydrochlorothiazide, amlodipine and betablocker Referral to cardiology EKG wnl No chest pain or pressure Echo ordered As well as trulicity for sugar management and BMI reduction Assessment & Plan (09/02/2024 10:32 AM EST): Above goal, pt reports compliance with med, denies orthopnea Referral to cardiology, Denies chest pain pressure or palpitations Routine health maintenance 09/01/2024 Screening for colon cancer 09/01/2024 Controlled type 2 diabetes m arminda without complication, without long-term current use of insulin 08/13/2024 Assessment & Plan (05/05/2025 4:27 PM EDT): Pt is candidate for glp-1 , will initiate prior authorization Assessment & Plan (09/02/2024 10:34 AM EST): Stable, continue current regimen VENESSA (generalized anxiety disorder) 08/22/2023 Assessment & Plan (05/05/2025 4:34 PM EDT): Pt endorses increase panic, intolerant of cymbalta and recalls sertraline was not a good fit Does recall prozac was helpful , will resume Assessment & Plan (08/24/2023 10:19 AM EST): Assessment: Patient with anxiety symptoms. No risk for self-ham, SI, or HI. Reason for visit was to assess symptoms, provide support, and offer referrals for appropriate care. Symptoms are present in the context of an incident that occurred in June 2023 where patient fell and hit his head on a night stand resulting in 15 stitches. Provided psychoeducation around anxiety and how to cope with symptoms. A referral for OP therapy was completed. Provider will begin patient on medication to address anxiety. At this time Tani Codrero meets criteria for Visit Diagnoses: Problem List Items Addressed This Visit Other VENESSA (generalized anxiety disorder) Patient ready to address current needs Yes Strengths include willingness to obtain services PLAN: 1. Follow up with [facility] [place]: Not recommended for follow-up 2. Patient goal is for panic attacks and anxiety symptoms to diminish 3. Behavioral Recommendations a. Will comply with medication b. Will utilize coping skills provided c. Engage in OP therapy once established d. May reach out to [facility] [place] if additional support is needed. Chronic midline back pain 08/22/2023 Assessment & Plan (04/22/2025 7:31 PM EDT): -Good engagement and participation with Group Medical Visit model -Encouraged multifactorial approach to pain control including pharm and non- pharm modalities -Pill count as expected. utox not as expected - see licensed occupational therapist. Assessment & Plan (03/27/2025 2:19 PM EDT): -Good engagement and participation with Group Medical Visit model -Encouraged multifactorial approach to pain control including pharm and non- pharm modalities -Pill count and utox not as expected - see licensed occupational therapist. Assessment & Plan (11/28/2024 2:27 PM EST): -Good engagement and participation with Group Medical Visit model -Encouraged multifactorial approach to pain control including pharm and non- pharm modalities -UTOX as expected, pill count 2 short. See licensed occupational therapist. Assessment & Plan (05/28/2024 2:26 PM EDT): Pill count and utox as expected today Pt participated in group to fullest of his abilities and will come again next month Encouraged multimodal and non-pharmacological methods of addressing pain Assessment & Plan (02/06/2024 2:52 PM EDT): Pill count and utox as expected today Pt participated in group and will come again next month Other insomnia 08/22/2023 Adjustment disorder with depressed mood 01/17/20 17 Diabetes mellitus, type II 09/09/2016 DDD (degenerative disc disease), lumbar 06/09/20 16 Spondylosis of lumbar region without myelopathy or radiculopathy 06/09/2016 Benign essential hypertension 05/11/2015 Morbid obesity with BMI of 45.0-49.9, adult 04/15 CARMEN (obstructive sleep apnea) 06/24/2013 Elevated transaminase level 01/28/2013 Low back pain 03/11/2012 Depression 10/14/2011 Herniated lumbar intervertebral disc 10/14/2011 Hyperlipidemia 10/14/2011 Testicular hypofunction 10/14/2011 Insomnia 10/14/2011 Encounters * This document contains information received from the source organization and may not represent a complete record from that organization. Date Type Department Care Team Description 06/11/2025 10:00 AM EDT Clinical Support [facility] [place] [address] Felicia Trevino RN Long-term current use of opiate analgesic (Primary Dx) 06/11/2025 Telephone [facility] [address] [place] [id number] Felicia Trevino RN UTOX Pos PCP, sent for confirmation 06/11/2025 Orders Only [facility] [address] [place] [id number] Mary Reich NP Type 2 diabetes mellitus with hyperglycemia, without long-term current use of insulin (CMS/HCC) (Primary Dx) 06/11/2025 Travel 06/09/2025 Telephone [facility] [place] [address] Felicia Trevino RN Random DESK MONITOR RV 06/02/2025 Refill [facility] [place] [address] Mary Reich NP Chronic midline back pain, unspecified back location 05/31/2025 Refill [facility] [place] [address] Mary Reich NP Chronic midline back pain, unspecified back location 05/20/2025 Telephone [facility] [place] [address] Felicia Trevino RN Random DESK MONITOR visit 05/16/2025 Refill [facility] [address] [place], [place] [phone] Jil gA MD Chronic midline back pain, unspecified back location 05/15/2025 Refill [facility] [address] [place] [address] Yu Bellamy FNP Type 2 diabetes mellitus with hyperosmolarity without coma, without long-term current use of insulin (CMS/HCC) 05/15/2025 Refill [facility] [address] [place] [address] Herbie Díaz MD Unspecified fracture of shaft of unspecified ulna, subsequent encounter for closed fracture with routine healing; Chronic midline back pain, unspecified back location 05/12/2025 9:30 AM EDT Office Visit [facility] [address] [place] [id number] Mary Reich NP Type 2 diabetes mellitus with hyperglycemia, without long-term current use of insulin (CMS/[facility]) (Primary Dx); Morbid obesity (CMS/HCC); Resistant hypertension; Other sleep apnea 05/12/[address] [address] Mary Reich NP Prior Authorization 05/12/2025 Travel 05/09/[address] [address] Leidy Gant [place] Chart Prep 05/05/2025 10:30 AM EDT Office Visit [address] [address] Mary Reich NP Hyperglycemia (Primary Dx); Controlled type 2 diabetes mellitus without complication, without long-term current use of insulin (CMS/HCC); Type 2 diabetes mellitus with other specified complication, unspecified whether long-term insulin use (CMS/HCC); Candidiasis; Long-term current use of opiate analgesic; Resistant hypertension; VENESSA (generalized anxiety disorder) 05/05/[address] [address] Mary Reich NP 05/05/[address] [address] Felicia Trevino RN Chronic midline back pain, unspecified back location 05/05/2025 Travel 05/02/2025 Telephone [facility] [address] [place] [address] Leidy Gant MA Chart Prep 05/01/[address] [address] Felicia Trevino RN Needs PCP appt re UTOX 04/28/2025 Refill [facility] [address] [place] [address] Mary Reich NP Chronic midline back pain, unspecified back location 04/28/2025 Telephone [facility] [address] [place] [address] Felicia Trevino, RN UTOX confirmation 04/22/2025 9:45 AM EDT Office Visit [facility] [address] [place] [address] Phalen, Mony, ELECTROPLATING WORKER Chronic midline low back pain without sciatica (Primary Dx); Long-term current use of opiate analgesic 04/22/2025 Orders Only [facility] [address] [place] [address] AsaelTimmy diazle, ELECTROPLATING WORKER 04/22/2025 Refill [facility] [address] [place] [address] Herbie Díaz MD Chronic midline back pain, unspecified back location 04/22/2025 Refill [facility] [address] [place] [address] Felicia Trevino RN Chronic midline back pain, unspecified back location 04/22/2025 Refill [facility] [address] [place] [address] Mary Reich NP Chronic midline back pain, unspecified back location 04/22/2025 Travel 04/15/2025 Refill [facility] [address] [place] [address] Mary Reich NP Type 2 diabetes mellitus with other specified complication, unspecified whether exterminator termite insulin use (CMS/[facility]) 04/15/2025 Refill [facility] [address] [place] [address] Mary Reich NP Type 2 diabetes mellitus with other specified complication, unspecified whether long-term insulin use (CMS/[facility]) 04/04/2025 Refill [facility] [address] [place] [address] Mary Reich NP Chronic midline back pain, unspecified back location; Type 2 diabetes mellitus with other specified complication, unspecified whether long-term insulin use (CMS/[facility]) 04/04/2025 Refill [facility] [address] [place] [address] Mary Reich NP Type 2 diabetes mellitus with other specified complication, unspecified whether long-term insulin use ([facility]) 04/04/2025 Refill [facility] [place] [address] Yu Bellamy FNP Type 2 diabetes mellitus with hyperosmolarity without coma, without long-term current use of insulin ([facility]) 04/04/2025 Refill [facility] [place] [address] Mary Reich NP Type 2 diabetes mellitus with other specified complication, unspecified whether exterminator termite insulin use ([facility]) 03/31/2025 Telephone [facility] [address] [place], [place] [phone] Mary Reich NP 03/27/2025 Results Follow-Up [facility] [place] [address] Mary Reich NP POCT Glucose, POCT HGB A1C, Lipid Panel, Standard, Additional followed-up results: 2 03/26/2025 Telephone [facility] [place] [address] Felicia Trevino RN Did not come in for Percocet count 03/25/25 03/25/2025 9:45 AM EDT Office Visit [facility] [place] [address] Mony Mckenzie FNP Chronic midline low back pain without sciatica (Primary Dx); Long-term current use of opiate analgesic 03/25/[address] [address] Felicia Trevino, RN UTOX Pos PCP & OXY; Forgot Percocet 03/25/2025 Travel 03/24/[address] [address] Mary Reich NP 03/20/2025 Orders Only [address] [address] Yu Bellamy FNP 03/20/[address] [address] Graef, Mary, FARM IMPLEMENT MECHANIC telephone call 03/17/2025 9:30 AM EDT Office Visit [facility] [address] [place] [address] Mary Reich NP Type 2 diabetes mellitus with other specified complication, unspecified whether exterminator termite insulin use ([facility]) (Primary Dx); Chronic pain syndrome; Primary hypertension; Dietary counseling; Exercise counseling; Long-term current use of opiate analgesic; Chronic midline low back pain with sciatica, sciatica laterality unspecified; Current mild episode of major depressive disorder without prior episode ([facility]); Morbid obesity ([facility]) 03/17/2025 Travel 03/14/2025 Telephone [facility] [address] [place], [place] [phone] Leidy Gant MA Chart Prep 03/11/2025 Telephone [facility] [address] [place] [address] Felicia Trevino RN [facility] from Last 3 Months Immunizations Immunization Administration Dates Next Due INFLUENZA INJECTABLE QUADRIV ALANT CCIIV4 MDCK Multi-dose vial 06/20/2018 Influenza injectable quadrivalent preservative f ree 08/09/2017 Influenza, IIV3, injectable 07/18/2016, 3 Influenza, seasonal, injectable, preservative fr ee 07/18/2016,06/24/2013 PPD Test 10/28/2013 Pneumococcal Conjugate PCV 20 02/09/2024 Pneumococcal Polysaccharide PPSV23 09/15/2016 Tdap 07/06/2023,10/28/2013 Family History Medical History Relation Name Comments Diabetes type II Father Stroke Father Brain Aneurysm Mother Relation Name Status Comments Father Mother Social History Tobacco Use Types Packs/Day Years [...] Orientation Straight 08/22/2023 9: 51 AM EST Last Filed Vital Signs Vital Sign Reading Time Taken Comments Blood Pressure 130/90 05/12/2025 9:39 AM EDT Pulse 61 05/12/2025 9:39 AM EDT Temperature 35.6 C (96 F) 05/12/2025 9:39 AM EDT Respiratory Rate 20 05/12/2025 9:39 AM EDT Oxygen Saturation 95% 05/12/2025 9:39 AM EDT Inhaled Oxygen Concentration - - Weight 143 kg (314 lb 3.2 oz) 05/12/2025 9:39 AM EDT Height 177.8 cm (5' 10 ) 05/12/2025 9:39 AM EDT Body Mass Index 45.08 05/12/2025 9:39 AM EDT Plan of Treatment Upcoming Encounters Date Type Department Care Team (Late st Contact Info) Description 06/13/2025 11:15 AM EDT Office Visit [facility] [address] [place] [address] Mary Reich NP [address] [place] [address] 06/18/2025 9:30 AM EDT Clinical Support [address] [phone] Felicia Trevino RN 06/24/2025 9:45 AM EDT Office Visit [address] [phone] 07/07/2025 10:15 AM EDT Office Visit [address] [address] Mary Reich, MAGNOLIA [address] [place], [place] [phone] Health Maintenance Due Date Last Done Comments CT Colonography 1975 Colonoscopy 1975 Colorectal Cancer Screening 1975 FIT DNA/Cologuard 1975 FIT 1975 FOBT 1975 HIV Screening 1975 Sigmoidoscopy 1975 Diabetes: Foot Exam 1985 Family Planning (PISQ) 1990 Hepatitis B Vaccines (1 of 3 - 19+ 3-dose series) 1994 COVID-19 Vaccine ( - season) 2024 Zoster Vaccines (1 of 2) 2025 Influenza Vaccine (#1) 2025 8, 08/09/2017, 07/18/2016, Additional history exists Diabetes: Hemoglobin A1C 06/20/2025 025, 03/17/2025, 09/02/2024, Additional history exists Alcohol/Substance Use Screening 09/02/2025 09/02/2024 Depression Monitoring 09/16/2025 03/17/2025, 025 SDOH Screening 03/17/2026 03/17/2025 Diabetes: Urine Protein Screening 03/20/2026 03/20/2025 Lipid Panel 03/20/2026 03/20/2025, 10/23/2023 Disability Screening 05/05/2026 05/05/2025 Tobacco Screening 05/12/2026 05/12/2025 Eye Exam 08/13/2026 08/13/2024, 07/17, 08/13/2024, Additional history exists DTaP/Tdap/Td Vaccines (3 - Td or Tdap) 07/06/2033 07/06/2023, 10/28/2013 RSV Patients and Patients Aged 60 years or older (1 - 1-dose 75+ series) 2050 Pneumococcal Vaccine: 50+ Years Completed 02/09/2024, 09/15/2016 Hepatitis C Screening Completed 09/02/2024 HIB Vaccines Aged Out No longer eligi ble based on patient's age to complete this topic HPV Vaccines Aged Out No longer eligi ble based on patient's age to complete this topic Hepatitis A Vaccines Aged Out No long er eligible based on patient's age to complete this topic IPV Vaccines Aged Out No longer eligi ble based on patient's age to complete this topic Meningococcal B Vaccine Aged Out No l onger eligible based on patient's age to complete this topic Meningococcal Vaccine Aged Out No monisha brynn eligible based on patient's age to complete this topic RSV under 20 months Aged Out No longe r eligible based on patient's age to complete this topic Rotavirus Vaccines Aged Out No longer eligible based on patient's age to complete this topic Procedures Procedure Name Priority Date/Time Associated Diagnosis Comments POCT JOHN-14 URINE DRUG SCREEN Routine 06/11/2025 12:02 PM EDT Long-term current use of opiate analgesic POCT GLUCOSE Routine 05/12/2025 10:12 AM EDT Type 2 diabetes mellitus with hyperglycemia, without long-term current use of insulin ([facility]) POCT GLUCOSE Routine 05/05/2025 10:45 AM EDT Hyperglycemia POCT JOHN-14 URINE DRUG SCREEN Routine 04/22/2025 10:09 AM EDT Chronic midline low back pain without sciatica DRUG MONITOR, OPIATES EXPANDED, QN, URINE Routine 04/22/2025 12:00 AM EDT METHADONE, URINE, QUANTITATIVE Routine 04/22/2025 12:00 AM EDT PHENCYCLIDINE SCREEN, URINE Routine 03/25/2025 12:30 PM EDT Long-term current use of opiate analgesic POCT JOHN-14 URINE DRUG SCREEN Routine 03/25/2025 10:23 AM EDT Chronic midline low back pain without sciatica ALBUMIN, RANDOM URINE W/CREATININE Routine 03/20/2025 9:41 AM EDT HEMOGLOBIN A1C Routine 03/20/2025 9:41 AM EDT Type 2 diabetes mellitus with other specified complication, unspecified whether exterminator termite insulin use (CMS/HCC) COMPREHENSIVE METABOLIC PANEL Routine 03/20/2025 9:41 AM EDT Type 2 diabetes mellitus with other specified complication, unspecified whether exterminator termite insulin use (CMS/HCC) LIPID PANEL, STANDARD Routine 03/20/2025 9:41 AM EDT Type 2 diabetes mellitus with other specified complication, unspecified whether long-term insulin use (CMS/HCC) ECG 12-LEAD Routine 03/17/2025 9:58 AM EDT Primary hypertension POCT GLYCATED HEMOGLOBIN, TOTAL Routine 03/17/2025 9:44 AM EDT Type 2 diabetes mellitus with other specified complication, unspecified whether exterminator termite insulin use (CMS/HCC) POCT GLUCOSE Routine 03/17/2025 9:44 AM EDT Type 2 diabetes mellitus with other specified complication, unspecified whether long-term insulin use (CMS/HCC) HEPATITIS C AB W/REFL TO HCV RNA, QN, PCR Routine 09/02/2024 10:21 AM EST Screening examination for sexually transmitted disease from Last 3 Months or Most Recently Relevant to Health Maintenance Results * (ABNORMAL) POCT JOHN-14 Urine Drug Screen (06/11/2025 12:02 PM EDT) Only the most recent of3 resultswithin the time period is included. THC Negative Negative Cocaine Screen, Urine Negative [...] - 06/11/2025 12:02 PM EDT UTOX cup Lot#[id number] Exp. 07/22/26 Internal Pass Control Mary Reich NP POINT OF CARE TEST ENTER/EDIT OR DERABLES Final Result * POCT Glucose (05/12/2025 10:12 AM EDT) Only the most recent of3 resultswithin the time period is included. Glucose Blood, POC 177 60 - 200 mg/dL QC Media Lot # [id number] Lot# Expiration Date Blood Capillary blood specimen / Unknown 05/12/2025 10:12 AM EDT Mary Reich NP POINT OF CARE TEST ENTER/EDIT OR DERABLES Final Result * Methadone, GC/MS, Urine (04/22/2025 12:00 AM EDT) Methadone, Urine 480 ng/mL [facility] EDDP (Methadone Metabolite) 320 ng/mL [facility] Comment:Limit of quantitatio n: Methadone 100 ng/mL EDDP 100 ng/mLReference Range: NegativeThis test was developed and its analytical performancecharacteristics have been determined by [facility] [employer] [place] It hasnot been cleared or approved by the U.S. Food and DrugAdministration. This assay has been validated pursuantto the CLIA regulations and is used for clinicalpurposes.THIS TEST WAS PERFORMED AT:[employer] [id number] [place] [id number] RETANA MD,PHD 04/22/2025 04/22/2025 us Mony Mckenzie ELECTROPLATING WORKER LAB URINE ORDERABLES Final Res ult [facility] [address] [place] [address] [phone] * Drug Monitoring, Opiates Expanded, Quantitative, Urine (04/22/2025 12:00 AM EDT) Codeine, Urine NEGATIVE [facility] Comment:[id number] ng/mL Hydrocodone, Ur NEGATIVE [facility] Comment:[id number] ng/mL Oxycodone, Urine 1572 [facility] Comment:[id number] ng/mL Oxycodone GC/MS Note SEE NOTE [facility] Comment:NOTES AND COMMENTSTh is drug testing is for medical treatment only. Analysiswas performed as non-forensic testing and these resultsshould be used only by healthcare providers torender diagnosis or treatment, or to monitor progress ofmedical conditions.Oxycodone Notes:Oxycodone, Noroxycodone, Oxymorphone detected is consistentwith the use of the drug Oxycodone.Oxymorphone detected is consistent with the use of the drugOxymorphone. Oxymorphone can be a prescribed drug and isalso a metabolite of Oxycodone.LDT Notes:Confirmation tests were developed and their analyticalperformance characteristics have been determined by [employer]. It has not been cleared orapproved by the FDA. This assay has been validated pursuantto the CLIA regulations and is used for clinical purposes.Healthcare Providers needing Interpretation assistance,please contact us at [phone] ( ) M-F,8am to 10pm EST Morphine, Urine 714 [facility] Comment:[id number] ng/mL Hydromorphone, Urine NEGATIVE [facility] Comment:[id number] ng/mL Oxymorphone, Urine 774 [facility] Comment:[id number] ng/mL Opiates GC/MS Note SEE NOTE [facility] Comment:NOTES AND COMMENTSTh is drug testing is for medical treatment only. Analysiswas performed as non-forensic testing and these resultsshould be used only by healthcare providers torender diagnosis or treatment, or to monitor progress ofmedical conditions.Opiates Notes:Morphine detected is consistent with the use of the drugMorphine. Morphine can be a prescribed drug and is also ametabolite of Codeine and Heroin. Lowconcentrations of Morphine have been observed followingingestion of products containing poppy seeds.LDT Notes:Confirmation tests were developed and their analyticalperformance characteristics have been determined by [employer]. It has not been cleared orapproved by the FDA. This assay has been validated pursuantto the CLIA regulations and is used for clinical purposes.Healthcare Providers needing Interpretation assistance,please contact us at [phone] ( ) M-F,8am to 10pm EST Norhydrocodone, Urine NEGATIVE [facility] Comment:[id number] ng/mL Noroxycodone, Urine 1964 [facility] Comment:[id number] ng/mLPERFOR RAYMUNDO SITE:[facility] [employer] [facility], [address] [place] [phone] Senior Sales Administrator: SENG OLIVIA MD, CLIA:[id number] 04/22/2025 04/22/2025 us Mony Mckenzie [facility] LAB URINE ORDERABLES Final Res ult [facility] [address] [place] [address] [phone] * Phencyclidine Screen, Urine (03/25/2025 12:30 PM EDT) Pathologist [facility] Phencyclidine Screen Urine Not Detected Not Detect [facility] Comment:Phencyclidine cut-of f is 25 ng/mL.Positive results are unconfirmed and should not be used fornon-medical purposes. Urine 03/25/2025 12:3 0 PM EDT 03/25/2025 4:13 PM EDT us Mony Mckenzie ELECTROPLATING WORKER LAB URINE ORDERABLES Final Res ult Performing Organization Address [facility] de Phone Number [facility] [address] [place] [phone] * Albumin, Random Urine W/Creatinine (03/20/2025 9:41 AM EDT) Creatinine, Urine 209.77 mg/dL [facility] Microalbumin Urine 43.0 mg/L [facility] Microalbum Creatinine Ratio Ur 20.4 <30 ug/mg cr [facility] Comment:Albumin/Creatinine R atio Reference Ranges: Normal: < 30 ug/mg creatinine Microalbuminuria: 30 - 300 ug/mg creatinineClinical Albuminuria: > 300 ug/mg creatinine 03/20/2025 9:41 AM EDT 03/20/2025 11:13 AM EDT us Yu Bellamy ELECTROPLATING WORKER LAB URINE ORDERABLES Final Resu lt Performing Organization Address [facility] de Phone Number [facility] [address] [place] [phone] * (ABNORMAL) Hemoglobin A1c (03/20/2025 9:41 AM EDT) Hemoglobin A1c 7.7(H) <6.0 % [facility] Comment:Hemoglobin A1C Refer ence Range Adults: 4.8 - 6.0 % Non diabetic: < 6.0 % Goal: < 7.0 %Additional Action Suggested: > 8.0 %Note: Hemoglobin A1c results are invalid for patients with abnormal amounts of HbF. Blood transfusions may impact the HbA1c concentration in the patient sample. Estimated Average Glucose 174 mg/dL [facility] Comment:eAG = Estimated ave rage glucose which is %A1C expressed asaverage glucose, using the formula of the H5V-PaweqgbEiphsql Glucose study (ADAG), Diabetes Care, Vol.31,#8,May. 2007 Blood Venous blood specimen / Unknown 03/20/2025 9:41 AM EDT 03/20/2025 11:37 AM EDT us Mary Reich FARM IMPLEMENT MECHANIC LAB BLOOD ORDERABLES Final Resul t Performing Organization Address [facility] de Phone Number [facility] [address] [place] [address] [phone] * (ABNORMAL) Lipid Panel, Standard (03/20/2025 9:41 AM EDT) Triglycerides 215(H) <150 mg/dL [facility] Comment:Desirable Triglyceri de: less than 150 mg/dLBorderline High Triglyceride 150-199 mg/dLHigh Triglyceride: 200-499 mg/dLVery High Triglyceride: greater than or equal to 5OO mg/dL Cholesterol 192 <200 mg/dL [facility] Comment:Desirable Cholestero l: less than 200 mg/dLBorderline High Cholesterol: 200-239 mg/dLHigh Cholesterol: greater than 239 mg/dL LDL Cholesterol Calculated 104(H) <100 mg/dL [facility] Comment:Desirable LDL: less than 100 mg/dLNear Optimal/Above Optimal LDL: 110- 129 mg/dLBorderline High LDL: 130-159 mg/dLHigh LDL: 160-189 mg/dLVery High LDL: greater than or equal to 190 mg/dL HDL Cholesterol 45 >40 mg/dL [facility] Comment:Desirable HDL: great er than 40 mg/dL Note: This HDL assay may give artificially low results in patients with liver disease. Blood Venous blood specimen / Unknown 03/20/2025 9:41 AM EDT 03/20/2025 11:37 AM EDT us Mary Reich NP LAB BLOOD ORDERABLES Final Resul t Performing Organization Address City/[facility]/ZIP Co de Phone Number [facility] [address] [place] [phone] * (ABNORMAL) Comprehensive Metabolic Panel (03/20/2025 9:41 AM EDT) Sodium 141 135 - 145 mmol/L [facility] Potassium 3.7 3.3 - 5.1 mmol/L [facility] Comment:Slight Hemolysis.Int erpret result with caution. Chloride 104 96 - 108 mmol/L [facility] Carbon Dioxide 28 22 - 29 mmol/L [facility] Anion Gap 13 12 - 20 [facility] Urea Nitrogen (BUN) 13 9 - 16 mg/dL [facility] Creatinine, Serum 0.69 0.5 - 1.4 mg/dL [facility] Estimated Glomerular Filt Rate >60 [facility] Comment:Chronic Kidney Disea se: Estimated GFR < 60 mL/min/1.76q4Vduknn Kidney Disease: Estimated GFR < 15 mL/min/1.73m2 Glucose 187(H) 60 - 115 mg/dL [facility] Calcium 10.0 8.4 - 10.2 mg/dL [facility] Bilirubin, Total 0.5 0.0 - 1.0 mg/dL [facility] Aspartate Amino Transferase 71(H) 5 - 37 U/L [facility] Comment:Slight Hemolysis.Int erpret result with caution. Alanine Aminotransferase 63(H) 0 - 40 U/L [facility] Total Protein 7.8 6.5 - 8.0 g/dL [facility] Albumin Level 4.3 3.5 - 5.0 g/dL [facility] Alkaline Phosphatase 85 39 - 117 U/L [facility] Blood Venous blood specimen / Unknown 03/20/2025 9:41 AM EDT 03/20/2025 11:37 AM EDT us Mary Reich FARM IMPLEMENT MECHANIC LAB BLOOD ORDERABLES Final Resul t Performing Organization Address City/[facility]/ZIP Co de Phone Number [facility] [address] [place] [phone] * ECG 12 lead (03/17/2025 9:58 AM EDT) Narrative Mary Reich NP - 03/17/2025 9:59 AM EDT Sinus [...] TEST ENTER/EDIT OR DERABLES Final Result * Hepatitis C Antibody with Reflex to HCV, RNA, Quantitative, Real-Time PCR (09/02/2024 10:21 AM EST) Hepatitis C Antibody Nonreactive Nonreactive [facility] Comment:Antibodies to HCV no t detected; does not exclude early acuteHCV infection. Blood Venous blood specimen / Unknown 09/02/2024 10:21 AM EST 09/02/2024 11:36 AM EST Yu Bellamy ELECTROPLATING WORKER LAB BLOOD ORDERABLES Final Resu lt [facility] [address] [place] [phone] from Last 3 Months or Most Recently Relevant to Health Maintenance Insurance [facility] 2 Care Teams Deckhand Maintenance Relationship Specialty Start Date End Date Mary Reich NP [address] [place] [phone] PCP - General Family Medicine 06/11/24
--- OUTSIDE RECORDS SUMMARY | 2025-06-11 18:04 | XMS_ITS | Encounter Summary ---
Author Organization [employer] Address [address] [place] [address] 7 [place] [address] Care Team Providers Care Pathology Secretary/Transcriptionist Name Role Phone Yu Bellamy Primary Care Provider [phone] Mary Reich NP Primary Care Provider [phone] Reason for Visit * Reason Onset Date Comments Medication Question 02/21/2024 Encounter Details Date Type Department Care Team ([facility] st Contact Info) Description 02/21/2024 Telephone [facility] [address] [place] [address] Yu Bellamy FNP [address] [place] [address] Medication Question Social History Tobacco Use Types Packs/Day Years [...] Telephone Encounter - Elias Bethea RN - 02/21/2024 2:14 PM EDT Please review and advise for below request. RN cannot see rx for Ibuprofen 800 mg. In past. * Telephone Encounter - Rocco Solomon - 02/21/2024 10:52 AM EDT Tc from pt requesting a week prescription of oxyCODONE-acetaminophen (Percocet) 10-325 MG tablet due to pt going through withdrawals. Pt stated he wasn't able to pickle pumper last prescription at pharmacydue to a issue with dosage. Pt would like a different dosage to be prescribed. Pt also stated pcp was to prescribe ibuprofen 800 mg in which he has not received and is requesting prescription as well. If any questions you can contact pt at [phone]. documented in this encounter Plan of Treatment Upcoming Encounters Date Type Department Care Team (Late st Contact Info) Description 06/13/2025 11:15 AM EDT Office Visit [facility] [address] [place] [address] Mary Reich NP [address] [place] [address] 06/18/2025 9:30 AM EDT Clinical Support [address] [address] Felicia Trevino RN 06/24/2025 9:45 AM EDT Office Visit [address] [address] 07/07/2025 10:15 AM EDT Office Visit [address] [address] Mary Reich NP [address] [place] [address] documented as of this encounter Visit Diagnoses Not on filedocumented in this encounter Additional Health Concerns Assessment Noted Time PHQ-9 Depression Total Score: 14 024 1:50 PM EDT documented as of this encounter Care Teams Pathology Secretary/Transcriptionist Relationship Specialty Start Date End Date Yu Bellamy FNP [address] [place] [address] PCP - General Family Medicine 10/06/23 06/10/24 Mary Reich NP [address] [place] [address] PCP - General Family Medicine 06/11/24 documented as of this encounter
--- OUTSIDE RECORDS SUMMARY | 2025-06-11 18:04 | XMS_ITS | Encounter Summary ---
Author Organization [employer] Address [address] [place] [address] 7 [place] [address] Care Team Providers Care Used Car Sales Supervisor Name Role Phone Mary Reich NP Primary Care Provider [phone] Reason for Visit * Reason Onset Date Comments Med Refill 04/15/2025 Encounter Details Date Type Department Care Team ([facility] st Contact Info) Description 04/15/2025 Refill [facility] [address] [place], [place] [phone] Mary Reich NP [address] [place] [address] Type 2 diabetes mellitus with other specified complication, unspecified whether halfway insulin use ([facility]) Social History Tobacco Use Types Packs/Day Years [...] Description 06/13/2025 11:15 AM EDT Office Visit [address] [address] Mary Reich NP [address] [place] [address] 06/18/2025 9:30 AM EDT Clinical Support [address] [address] Felicia Trevino RN 06/24/2025 9:45 AM EDT Office Visit [address] [address] 07/07/2025 10:15 AM EDT Office Visit [address] [address] Mary Reich NP [address] [place] [address] documented as of this encounter Visit Diagnoses Diagnosis Type 2 diabetes mellitus with other specified complication, unspecified whether remote computer terminal operator insulin use ([facility]) documented in this encounter Additional Health Concerns Assessment Noted Time PHQ-9 Depression Total Score: 15 025 10:20 AM EDT documented as of this encounter Care Teams Used Car Sales Supervisor Relationship Specialty Start Date End Date Mary Reich NP [address] [place] [address] PCP - General Family Medicine 06/11/24 documented as of this encounter
--- OUTSIDE RECORDS SUMMARY | 2025-06-11 18:04 | XMS_ITS | Encounter Summary ---
Author Organization [employer] Address [address] [place] [address] [address] [place] [address] Care Team Providers Care Pencil Maker Name Role Phone Mary Reich NP Primary Care Provider [phone] Reason for Visit * Reason Onset Date Comments Med Refill 04/04/2025 Encounter Details Date Type Department Care Team ([facility] st Contact Info) Description 04/04/2025 Refill [facility] [address] [place], [place] [phone] Mary Reich NP [address] [place] [address] Type 2 diabetes mellitus with other specified complication, unspecified whether care home insulin use ([facility]) Social History Tobacco Use Types Packs/Day Years [...] Description 06/13/2025 11:15 AM EDT Office Visit [address] [address] Mary Reich NP [address] [place] [address] 06/18/2025 9:30 AM EDT Clinical Support [address] [address] Felicia Trevino RN 06/24/2025 9:45 AM EDT Office Visit [address] [address] 07/07/2025 10:15 AM EDT Office Visit [address] [address] Mary Reich NP [address] [place] [address] documented as of this encounter Visit Diagnoses Diagnosis Type 2 diabetes mellitus with other specified complication, unspecified whether oysterman insulin use ([facility]) documented in this encounter Additional Health Concerns Assessment Noted Time PHQ-9 Depression Total Score: 15 025 10:20 AM EDT documented as of this encounter Care Teams Pencil Maker Relationship Specialty Start Date End Date Mary Reich NP [address] [place] [address] PCP - General Family Medicine 06/11/24 documented as of this encounter
--- OUTSIDE RECORDS SUMMARY | 2025-06-11 18:04 | XMS_ITS | Encounter Summary ---
Author Organization [employer] Address [address] [place] [address] 7 [place] [address] Care Team Providers Care Shank Inspector Name Role Phone Mary Reich NP Primary Care Provider [phone] Reason for Visit * Reason Onset Date Comments Med Refill 04/04/2025 Encounter Details Date Type Department Care Team ([facility] st Contact Info) Description 04/04/2025 Refill [facility] [address] [place], [place] [phone] Mary Reich NP [address] [place] [address] Type 2 diabetes mellitus with other specified complication, unspecified whether snf insulin use ([facility]) Social History Tobacco Use Types Packs/Day Years [...] your housing situation today? I have lilo opnce 03/17/[address] you li [...] Description 06/13/2025 11:15 AM EDT Office Visit [address] [address] Mary Reich NP [address] [place] [address] 06/18/2025 9:30 AM EDT Clinical Support [address] [address] Felicia Trevino RN 06/24/2025 9:45 AM EDT Office Visit [address] [address] 07/07/2025 10:15 AM EDT Office Visit [address] [address] Mary Reich NP [address] [place] [address] documented as of this encounter Visit Diagnoses Diagnosis Type 2 diabetes mellitus with other specified complication, unspecified whether exterminator insulin use ([facility]) documented in this encounter Additional Health Concerns Assessment Noted Time PHQ-9 Depression Total Score: 15 025 10:20 AM EDT documented as of this encounter Care Teams Shank Inspector Relationship Specialty Start Date End Date Mary Reich NP [address] [place] [address] PCP - General Family Medicine 06/11/24 documented as of this encounter
--- OUTSIDE RECORDS SUMMARY | 2025-06-11 18:04 | XMS_ITS | Encounter Summary ---
Author Organization [employer] Address [address] [place] [address] Care Team Providers Care Ruby Engineer Name Role Phone Mary Reich NP Primary Care Provider [phone] Reason for Referral * Consultation (Routine) - Authorized Specialty Diagnoses / Procedures Referred By Nehal t Referred To Contact Pharmacy Diagnoses Type 2 diabetes mellitus with hyperglycemia, without long-term current use of insulin (CMS/HCC) Mary Reich NP [address] [place] [address] Phone: tel: fax: Referral ID Status Reason Start Date Expiration Date Visits Requested Visits Authorized [id number] Authorized Consult and Treat 06/11/2025 06/11/2026 6 6 Encounter Details Date Type Department Care Team ([facility] st Contact Info) Description 06/11/2025 Orders Only [facility] [address] [place], [place] [phone] Mary Reich NP [address] [place], [place] [phone] Type 2 diabetes mellitus with hyperglycemia, without long-term current use of insulin (CMS/HCC) (Primary Dx) Social History Tobacco Use Types [...] Progress Notes * Mary Reich NP - 06/11/2025 11:50 AM EDT Referral for TYPE II DM documented in this encounter Plan of Treatment Upcoming Encounters Date Type Department Care Team (Late st Contact Info) Description 06/13/2025 11:15 AM EDT Office Visit [facility] [address] [place] [address] Mary Reich NP [address] [place] [address] 06/18/2025 9:30 AM EDT Clinical Support [address] [address] Felicia Trevino RN 06/24/2025 9:45 AM EDT Office Visit [address] [address] 07/07/2025 10:15 AM EDT Office Visit [address] [address] Mary Reich NP [address] [place] [address] Scheduled Referrals Name Type Priority Associated Diagnoses Orde r Schedule Referral to Pharmacy CDTM Outpatient Referral Routine Type 2 diabetes mellitus with hyperglycemia, without long-term current use of insulin ([facility]) Ordered: 06/11/2025 documented as of this encounter Visit Diagnoses Diagnosis Type 2 diabetes mellitus with hyperglycemia, without long-term current use of insulin ([facility])- Primary documented in this encounter Additional Health Concerns Assessment Noted Time PHQ-9 Depression Total Score: 15 03/17/ 025 10:20 AM EDT documented as of this encounter Care Teams Ruby Engineer Relationship Specialty Start Date End Date Mary Reich NP [address] [place] [phone] PCP - General Family Medicine 06/11/24 documented as of this encounter
--- OUTSIDE RECORDS SUMMARY | 2025-06-11 18:04 | XMS_ITS | Encounter Summary ---
Author Organization [employer] Address [address] [place] [address] 7 [place] [address] Care Team Providers Care Charter Pilot Name Role Phone Mary Reich NP Primary Care Provider [phone] Reason for Visit * Reason Comments Med Refill Encounter Details Date Type Department Care Team ([facility] st Contact Info) Description 06/02/2025 Refill [facility] [address] [place] [address] Mary Reich NP [address] [place] [address] Chronic midline back pain, unspecified back location [...] 06/13/2025 11:15 AM EDT Office Visit [address] [address] Mary Reich NP [address] [place] [address] 06/18/2025 9:30 AM EDT Clinical Support [address] [address] Felicia Trevino RN 06/24/2025 9:45 AM EDT Office Visit [address] [address] 07/07/2025 10:15 AM EDT Office Visit [address] [address] Mary Reich NP [address] [place] [address] documented as of this encounter Visit Diagnoses Diagnosis Chronic midline back pain, unspecified back location documented in this encounter Additional Health Concerns Assessment Noted Time PHQ-9 Depression Total Score: 15 025 10:20 AM EDT documented as of this encounter Care Teams Charter Pilot Relationship Specialty Start Date End Date Mary Reich NP [address] [place] [address] PCP - General Family Medicine 06/11/24 documented as of this encounter
--- OUTSIDE RECORDS SUMMARY | 2025-06-11 18:04 | XMS_ITS | Encounter Summary ---
Author Organization [employer] Address [address] [place] [address] 7t [place] [address] Care Team Providers Care Living Manager Name Role Phone Mary Reich MAGNOLIA Primary Care Provider [phone] Reason for Visit * Reason Onset Date Comments Random STRUCTURES ENGINEER RV 06/09/2025 Encounter Details Date Type Department Care Team ([facility] st Contact Info) Description 06/09/2025 Telephone [facility]INE [address] [place] [address] Felicia Trevino RN Random STRUCTURES ENGINEER RV Social History Tobacco Use Types Packs/Day Years [...] Telephone Encounter - Felicia Trevino RN - 06/09/2025 1:09 PM EDT TC to patient, no answer. L/M requesting he come in 06/11/25 @ 10am for random STRUCTURES ENGINEER RV appt. Sent text message through portal as well. documented in this encounter Plan of Treatment Upcoming Encounters Date Type Department Care Team (Late st Contact Info) Description 06/13/2025 11:15 AM EDT Office Visit [address] [address] Mary Reich, MAGNOLIA [address] [place] [address] 06/18/2025 9:30 AM EDT Clinical Support [address] [address] Felicia Trevino RN 06/24/2025 9:45 AM EDT Office Visit [address] [address] 07/07/2025 10:15 AM EDT Office Visit [address] [address] Mary Reich, MAGNOLIA [address] [place] [address] documented as of this encounter Visit Diagnoses Not on filedocumented in this encounter Additional Health Concerns Assessment Noted Time PHQ-9 Depression Total Score: 15 025 10:20 AM EDT documented as of this encounter Care Teams Living Manager Relationship Specialty Start Date End Date Mayr Reich NP [address] [place] [address] PCP - General Family Medicine 06/11/24 documented as of this encounter
--- OUTSIDE RECORDS SUMMARY | 2025-06-11 18:04 | XMS_ITS | Encounter Summary ---
Author Organization [employer] Address [address] [facility] 7t [place] [address] Care Team Providers Care Recreation Therapy Director Name Role Phone Yu Bellamy Primary Care Provider [phone] Mary Reich NP Primary Care Provider [phone] Encounter Details Date Type Department Care Team ([facility] st Contact Info) Description 05/22/2024 Orders Only [facility] [address] [place] [address] Yu Bellamy FNP [address] [place] [address] Social History Tobacco Use Types Packs/Day Years [...] Description 06/13/2025 11:15 AM EDT Office Visit [address] [address] Mary Reich NP [address] [place] [address] 06/18/2025 9:30 AM EDT Clinical Support [address] [address] Felicia Trevino RN 06/24/2025 9:45 AM EDT Office Visit [address] [address] 07/07/2025 10:15 AM EDT Office Visit [address] [address] Mary Reich NP [address] [place] [address] documented as of this encounter Visit Diagnoses Not on filedocumented in this encounter Additional Health Concerns Assessment Noted Time PHQ-9 Depression Total Score: 14 024 1:50 PM EDT documented as of this encounter Care Teams Recreation Therapy Director Relationship Specialty Start Date End Date Yu Bellamy FNP [address] [place] [address] PCP - General Family Medicine 10/06/23 06/10/24 Mary Reich NP [address] [place] [address] PCP - General Family Medicine 06/11/24 documented as of this encounter
--- OUTSIDE RECORDS SUMMARY | 2025-06-11 18:04 | XMS_ITS | Encounter Summary ---
Author Organization [employer] Address [address] [place] [address] 7[address] [place] [address] Care Team Providers Care Kiln Stoker Name Role Phone Mary Reich MAGNOLIA Primary Care Provider [phone] Encounter Details Date Type Department Care Team (Latest Contact Info) Description 06/11/2025 Travel Social History Tobacco Use Types Packs/Day Years [...] Description 06/13/2025 11:15 AM EDT Office Visit [address] [address] Mary Reich NP [address] [place] [address] 06/18/2025 9:30 AM EDT Clinical Support [address] [address] Felicia Trevino, AMERICO 06/24/2025 9:45 AM EDT Office Visit [address] [address] 07/07/2025 10:15 AM EDT Office Visit [address] [address] Mary Reich NP [address] [place] [address] documented as of this encounter Visit Diagnoses Not on filedocumented in this encounter Additional Health Concerns Assessment Noted Time PHQ-9 Depression Total Score: 15 025 10:20 AM EDT documented as of this encounter Care Teams Kiln Stoker Relationship Specialty Start Date End Date Mary Reich NP [address] [place] [address] PCP - General Family Medicine 06/11/24 documented as of this encounter
== END 2025-06-11 18:01 | disposition home or self-care (01) ==
LOC: HO.HHCLNP 18:00
PROVIDERS: Visit Provider Nurse Practitioner Family
DX: Z79.891 Long term (current) use of opiate analgesic (principal)
CPT/HCPCS: 80307

== ENCOUNTER 2025-07-25 11:32 | Outpatient (AMB) | payer OTHER, SELFPAY ==
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
[2025-07-25 11:37] VITALS: BP 140/98; PULSE 86; RESP 16; O2SAT 96; BMI 43.6
== END 2025-07-25 12:27 | disposition home or self-care (01) ==
LOC: HO.PMC 11:32
PROVIDERS: PCP Nurse Practitioner Family; Visit Provider Internal Medicine
DX: M51.369 Other intervertebral disc degeneration, lumbar region without mention of lumbar back pain or lower extremity pain (principal); G89.29 Other chronic pain
CPT/HCPCS: 99204

== ENCOUNTER → 2025-07-25 11:32 | Outpatient (BNVA) | payer OTHER, SELFPAY | PROVIDERS: Visit Provider Internal Medicine | DX: M51.369 Other intervertebral disc degeneration, lumbar region without mention of lumbar back pain or lower extremity pain (principal); G89.29 Other chronic pain | CPT/HCPCS: 99202 ==